=== PATIENT | female | born 1985 | race Caucasian/White ===

== ENCOUNTER 2025-01-26 08:19 | Emergency (ER) | payer OTHER, SELFPAY ==
[2025-01-26 08:38] VITALS: BP 99/56; PULSE 78; RESP 16; TEMP 36.6; O2SAT 98; BMI 22.9
[2025-01-26 08:54] LABS: MANUAL DIFF FLAG NO
[2025-01-26 08:56] LABS: Hematocrit 34.9 % (37.0-47.0); Hemoglobin 10.9 g/dl (12.0-16.0); Imm Gran Abs Auto 0.03 X10*3/uL (0.00-0.03); Imm Gran Pct Auto 0.3 % (0.0-0.4); Lymphocytes Absolute Auto 2.6 X10*3/uL (1.2-4.9); Mean Corpuscular HGB Conc 31.2 g/dl (31.0-35.0); Mean Corpuscular Hemoglobin 24.9 pg (27.0-33.0); Mean Corpuscular Volume 79.7 fL (80.0-98.0); NRBC Abs Auto 0.000 X10*3/uL (0.0-0.012); NRBC Pct Auto 0.0 /100WBC (0.0-0.2); Platelet Count 349 X10*3/uL (160-400); Red Blood Count 4.38 X10*6/uL (4.20-5.50); White Blood Count 9.0 X10*3/uL (4.8-10.8)
[2025-01-26 09:11] LABS: Anion Gap 12 (12-20); Blood Urea Nitrogen 9 mg/dL (9-16); Calcium 9.8 mg/dL (8.4-10.2); Carbon Dioxide 32 mmol/L (22-29); Chloride 101 mmol/L (96-108); Creatinine Clr Calc Pharmacy 95.1; Estimated Glomerular Filt Rate > 60; Potassium 3.0 mmol/L (3.3-5.1); Sodium 142 mmol/L (135-145)
--- NOTE | 2025-01-26 10:05 | ED.GENADULT ---
HPI - General Adult General Chief complaint: Weakness Stated complaint: fatigue, sent from urgent care Time Seen by Provider: 01/26/25 10:05 Source: patient, family and RN notes reviewed Mode of arrival: ambulatory Limitations: no limitations History of Present Illness ED Provider: Marisabel Urbina PA-C HPI narrative: This is a 39-year-old female, with a past medical history of asthma, anemia, who presents emergency department with concerns of months long fatigue that comes and goes as well as 3 near syncopal episodes yesterday. Patient states that yesterday while she was doing her son's laundry, she felt warm sensation all over her body, and felt very fatigued, with an associated headache and thought she was going to pass out. She states that this happened 2 other times later on in the day. No chest pain or shortness for breath during these episodes. She states that during these episodes she felt overwhelmed, had to sit down, became cold NSAIDs heat going down her body. She states that her symptoms completely resolved after several minutes. She denies any chest pain or shortness for breath. Reports intermittent headaches, persistent nausea since Saturday without any vomiting. Subjective fevers without measured temperature, as well as some abdominal cramping. She denies any recent travel, surgery, hospitalizations. She was seen at an urgent care yesterday, respiratory swabs were obtained, and she was advised to come to the ED for blood work. She has a primary care physician who she can follow-up with. No other complaints or concerns at this time. complaint: Fatigue Onset (ago): month(s) Relieving factors: none Exacerbating factors: none Treatments prior to arrival: none Related Data Allergies Allergy/AdvReac Type Severity Reaction Status Date / Time No Known Allergies Allergy Verified 01/26/25 08:40 Review of Systems Review of Systems: Constitutional : No Fever, No Chills ENT/Mouth : No sore throat, No Rhinorrhea Eyes: No Eye Pain, No Swelling, No Redness Cardiovascular : No Chest Pain, No SOB Respiratory : No Cough, No Sputum Gastrointestinal : No Nausea, No Vomiting, No Diarrhea, No abdominal Pain Genitourinary : No Dysuria, No Hematuria Musculoskeletal : No joint pain, No Myalgias, No Joint Swelling Skin : No Skin Lesions Neuro : No Weakness, No Numbness, No Headache All other systems reviewed and are negative Yes all other systems are reviewed and are negative Constitutional: Constitutional: Reports as per [facility] Social History Social History Smoked in Last 30 Days: Yes Use of substances other than those prescribed or required for medical reasons: Yes Substance Use Type: Marijuana Advance Directives: No Advance Directives Information Provided: No Do you have a plan to hurt others: No Plan Physical Exam ED Vital Signs: Vital Signs - 24 hr 01/26/25 08:38 01/26/25 10:09 Temperature 98 F 98.1 F Pulse Rate 78 75 Respiratory Rate 16 16 Blood Pressure 99/56 L 107/58 L Pulse Oximetry 98 98 Oxygen Delivery Method Room Air Room Air BMI result Body Mass Index 22.9 Const General: cooperative, comfortable and no acute distress Orientation/consciousness: patient oriented x3 Limitations: no limitations HENMT Head: Yes normal to inspection, Yes normocephalic and Yes atraumatic Ears: hearing grossly normal bilaterally General nose exam: Normal external nose present Face and sinus: Yes normal facial exam Mouth: Normal oral and palatal mucosa present, oropharynx normal and moist mucous membranes Throat: Yes posterior oropharynx normal Eyes General: appearance normal, both eyes and all related structures Eyelids: Yes eyelids normal Conjunctivae: conjunctivae normal Sclerae: sclerae normal Pupils: Equal, round and reactive pupils present EOM: EOMs intact bilaterally Neck Neck: Yes normal visual inspection, Yes full ROM and Yes no lymphadenopathy Lymphatic: no lymphadenopathy noted Chest Chest palpation & inspection: normal inspection of the chest Resp Effort & Inspection: normal respiratory effort and able to speak in complete sentences Auscultation: clear to auscultation bilaterally, no crackles, no rales, no rhonchi and no wheezes Cardio Rate: regular rate Rhythm: regular rhythm Heart sounds: S1 normal heart sound present and S2 normal heart sound present GI Other: abdomen is soft, nontender, nondistended Inspection: Yes normal to inspection Skin General skin exam: no rashes or lesions noted Trauma: no lacerations or abrasions Wounds: no wounds Neuro General: patient oriented x3 and moves all extremities Cranial nerves: Yes Equal, round and reactive pupils present Extrem General: Yes normal to inspection Right upper extremity: normal to inspection Left upper extremity: normal to inspection Right lower extremity: normal to inspection Left lower extremity: normal to inspection Medical Decision Making Medical Decision Making MDM Narrative: this is a 39-year-old female, with a past medical history of anemia, who presents emergency department with complaints of chronic fatigue and 3 near syncopal episodes yesterday. No chest pain or shortness for breath. Episodes associated with cold sensation, heat flushing, nausea. On arrival, patient well-appearing, speaking full sentences under no acute distress. Her vitals reveal that she is slightly hypotensive at 99/56, repeat 107/58. Differential diagnoses include orthostatic hypotension, anemia, thyroid disease, electrolyte derangement. Labs were obtained prior to my evaluation. she has a microcytic anemia with an H&H of 10.9/34.9, chemistry reveal hypokalemia at 3, awaiting liver function panel. I also added a TSH, and other labs however patient would like to be discharged. 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 I discussed with patient that she should follow-up with her primary care physician. I discussed that given her workup is not complete, patient will need to sign against medical advice. She is aware of the risks and consequences of signing against medical advice. Given strict return precautions. Hypokalemic at 3 therefore she was given p.o. potassium prior to departure. Differential Diagnosis Differential Diagnoses: The differential diagnosis associated with the presentation includes See above Lab Data [facility] Lab Attestation statement: I reviewed the patient's lab results. see [facility] 01/26/25 08:50 01/26/25 08:50 Labs: Lab Results 01/26/25 Range/Units 08:50 WBC 9.0 (4.8-10.8) X10*3/uL RBC 4.38 (4.20-5.50) X10*6/uL Hgb 10.9 L (12.0-16.0) g/dl Hct 34.9 L (37.0-47.0) % MCV 79.7 L (80.0-98.0) fL MCH 24.9 L (27.0-33.0) pg MCHC 31.2 (31.0-35.0) g/dl RDW 16.4 H (11.0-16.0) % Plt Count 349 (160-400) X10*3/uL MPV 11.1 (9.4-12.3) fL Immature Gran % (Auto) 0.3 (0.0-0.4) % Neut % (Auto) 60.5 (45-73) % Lymph % (Auto) 28.7 (20-40) % [place] % (Auto) 9.6 (2-11) % Eos % (Auto) 0.6 (0-4) % Baso % (Auto) 0.3 (0-2) % Lymph # (Auto) 2.6 (1.2-4.9) X10*3/uL [place] # (Auto) 0.9 (0.1-1.2) X10*3/uL Eos # (Auto) 0.1 (0.0-0.4) X10*3/uL Baso # (Auto) 0.0 (0.0-0.2) X10*3/uL Abs Immat Gran (auto) 0.03 (0.00-0.03) X10*3/uL Absolute Neuts (auto) 5.4 (2.0-8.3) x10*3/uL Absolute Nucleated RBC 0.000 (0.0-0.012) X10*3/uL Nucleated RBC % (auto) 0.0 (0.0-0.2) /100WBC Sodium 142 (135-145) mmol/L Potassium 3.0 L (3.3-5.1) mmol/L Chloride 101 (96-108) mmol/L Carbon Dioxide 32 H (22-29) mmol/L Anion Gap 12 (12-20) BUN 9 (9-16) mg/dL Creatinine 0.64 (0.5-1.4) mg/dL Estim Creat Clear Calc 95.1 Estimated GFR > 60 Random Glucose 91 (60-115) mg/dL Calcium 9.8 (8.4-10.2) mg/dL Blood Type A Positive Antibody Screen NEGATIVE Discharge Plan Discharge Clinical Impression: Fatigue, Hypokalemia Patient Disposition: Left Against Medical Advice Instructions: Hypokalemia (ED), Fatigue (ED) Additional Instructions: You were seen in the ER with concerns of fatigue. Your workup is not complete however you would like to leave prior to completing your full workup. Your potassium was low therefore we gave you oral potassium prior to your departure today. Given this, we are unable to rule out any life-threatening illness, therefore you were signing against medical advice. You understand that signing against medical advice, U acknowledged that any life-threatening illness including any medical conditions that can lead to severe illness disability and or . Please follow-up with your primary care physician regarding this visit. If any new or worsening symptoms occur including but not limited to severe chest pain, shortness of breath, please seek emergent care. Stand Alone Forms: Against Medical Advice Print Language: Japanese
--- OUTSIDE RECORDS SUMMARY | 2025-01-26 10:05 | XMS_ITS | Clinical Summary ---
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 No known medications Social History Tobacco Use Types Packs/Day Years Used Date Smoking Tobacco: Never Alcohol Use Standard Drinks/Week Comments Not Asked 0 (1 standard drink = 0.6 oz pur e alcohol) Comments Unknown Sex and Gender Information Value Date Recorded Sex Assigned at Not on file Legal Sex Female 9:58 AM EST Gender Identity Not on file Sexual Orientation Not on file Plan of Treatment Health Maintenance Due Date Last Done Comments Hepatitis C Screening 1987 Pap Smear 2003 DTaP/Tdap/Td (1 - Tdap) 05/23/2005 Hep B (1 of 3 - 19+ 3-dose series) 05/23/2006 COVID-19 Vaccine (2024-2 6 season) 2024 Influenza (#1) 2024 Zoster (Shingrix) (1 of 2) 05/23/2037 HPV Vaccine (No Doses Required) Completed Hep A Aged Out No longer eligi ble based on patient's age to complete this topic Hib Aged Out No longer eligi ble based on patient's age to complete this topic Meningococcal ACWY Aged Out No longer eligible based on patient's age to complete this topic Pneumococcal Aged Out No longer eligi ble based on patient's age to complete this topic
--- OUTSIDE RECORDS SUMMARY | 2025-01-26 10:05 | XMS_ITS | Clinical Summary ---
Author Organization [facility] Address [address] [place] [phone] Phone Care Team Providers Care Tile Edger Name Role Phone Tosin Peraza MD Primary Care Provider Unavailabl e Immunizations Immunization Administration Dates Next Due DTP 10/11/1998, 8,10/11/1997,08/10,07/12/1991 HPV, Quadrivalent 04/07/2007,09/26/2006,07/27/19 07 Hep B, ped/adol 04/18/2000,01/29/2000,10/27/1999 Hib (PRP-T) 06/10/1989 IPV 10/11/1998, 8,08/10/1997,07/11 Influenza, injectable, trivalent 02/10/2004 MMR 09/10/1998,07/12/1991 Meningococcal Conj (Menactra) MCV4P 04/07/2007 Td (adult) (MBL), 2 Lf tetan us toxoid, PF, adsorbed 10/27/1999 Tdap 04/07/2007 Varicella 10/27/1999 Family History Relation Name Status Comments Mother Mother: Asthma Sister 1 Sister: Diabete s mellitus, ADD/ADHD, Migraines, Asthma Sister 2 Sister: Diabete s mellitus, ADD/ADHD, Migraines, Asthma Sister 3 Sister: Diabete s mellitus, ADD/ADHD, Migraines, Asthma Sister 4 Sister: Diabete s mellitus, ADD/ADHD, Migraines, Asthma Son Son: Elevated c holesterol Social History Tobacco Use Types Packs/Day Years Used Date Smoking Tobacco: Never Assessed Comments Unknown Sex and Gender Information Value Date Recorded Sex Assigned at Not on file Legal Sex Female 4:23 PM EDT Gender Identity Not on file Sexual Orientation Not on file Plan of Treatment Health Maintenance Due Date Last Done Comments Varicella Vaccines (2 of 2 - 2-dose childhood series) 01/19/2000 10/27/1999 DTaP,Tdap,and Td Vaccines (6 - Td or Tdap) 04/07/2017 04/07/2007, 10/27/1999, 10/11/1998, Additional history exists Influenza Vaccines (#1) 2024 02/10/2004 COVID-19 Vaccine ( season) 2024 HIB Vaccines Completed 06/10/1989 MMR Vaccines Completed 09/10/1998, 07/12/1991 IPV Vaccines Completed 10/11/1998, 09/13, 08/10/1997, Additional history exists Hepatitis B Vaccines Completed 04/18/2000, 01/29/2000, 10/27/1999 HPV Vaccines Completed 04/07/2007, 09/11, 07/26/2006 Meningococcal Vaccine Aged Out 04/07/2007 No juliane lisa eligible based on patient's age to complete this topic Hepatitis A Vaccines Aged Out No long er eligible based on patient's age to complete this topic Men B Vaccine Aged Out No longer elig ible based on patient's age to complete this topic Pneumococcal Vaccine Aged Out No long er eligible based on patient's age to complete this topic Care Teams Tile Edger Relationship Specialty Start Date End Date Tosin Peraza MD PCP - General 09/21/16
--- OUTSIDE RECORDS SUMMARY | 2025-01-26 10:05 | XMS_ITS | Encounter Summary ---
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 Name Role Phone Tosin Peraza MD Primary Care Provider Unavailabl e Encounter Details Date Type Department Care Team (Late st Contact Info) Description 12/13/2016 Conversion Encounter [facility] - [address] [address] Social History Tobacco Use Types Packs/Day Years Used Date Smoking Tobacco: Never Assessed Comments Unknown Sex and Gender Information Value Date Recorded Sex Assigned at Not on file Legal Sex Female 4:23 PM EDT Gender Identity Not on file Sexual Orientation Not on file documented as of this encounter Plan of Treatment Not on file documented as of this encounter Visit Diagnoses Not on filedocumented in this encounter Care Teams Casting Repairer Relationship Specialty Start Date End Date Tosin Peraza MD PCP - General 09/21/16 documented as of this encounter
--- OUTSIDE RECORDS SUMMARY | 2025-01-26 10:05 | XMS_ITS | Patient Health Record ---
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 Ditch Worker Name Role Phone Rand Robert MD Primary Care Provider Juliet Romano Unavailable [phone] Reason For Referral No Information Medications Medication SIG (Take, Route, Frequency, Duration) Notes Start Date End Date Status Loratadine 10 MG Tablet 1 tablet Orally Once a day Active Ibuprofen 600 MG Tablet 1 tablet with fo od or milk Orally Three times a day as needed Active Cpap Mask Order auto titrating CPAP at 4-20 cm it heated humidifier, heated tubing, compliance data, fit for mask; Duration: 99 months 07/16/2016 Active Ventolin HFA 108 (90 Base) MCG/ACT Aerosol Solution 2 puffs as needed Inhalation every 4 hrs Active Fluticasone Propionate 50 MCG/ACT Suspension 1 spray in each nostril Nasally Once a day Active Omeprazole 40 MG Capsule Delayed Release Orally Once a day Active Vitamin C 500 MG Tablet Orally Active Flovent HFA 220 MCG/ACT Aerosol 2 puffs Inhalation Twice a day Active Social History Social History Additional Details Category Social Info Options Details Social History 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 Alcohol: Occasional Recreational drug use: Denies cu rrent use Exercise: None Marital status Lives with husba nd and 2 children Caffeine Cups coffee/ tea per day: 2, cup of Pepsi most days Problems Problem Type SNOMED Code ICD Code Onset Dates Problem Status W/U Status Risk Notes Problem Obstructive sleep apnea syndrome (66674385) NOHEMY (obstructiv e sleep apnea) (G47.33) Active confirmed Plan Of Treatment No Information Insurance Providers Payer Name Payer Address Payer Phone Subscriber Number Group Number Insured Name Patient Relationship to Insured Coverage Start Date Coverage End Date [place], [facility] [address] [facility] [place] [id number] Johana Roque Self - patient is the insured Medical (General) History Medical History History ICD Code Asthma Esophageal reflux Anxiety Depression Surgical History Surgery Date(Month/Year) section x 2
[2025-01-26 10:09] VITALS: BP 107/58; PULSE 75; RESP 16; TEMP 36.7; O2SAT 98
[2025-01-26] MEDS: Potassium Chloride ER 20 MEQ TAB.ER.PRT 40 MEQ PO (11:06)
[2025-01-26 11:13] VITALS: BP 107/58; PULSE 75; RESP 16; TEMP 36.7; O2SAT 98
[2025-01-26 11:31] LABS: Alanine Aminotransferase 14 U/L (0-31); Albumin Level 4.4 g/dL (3.5-5.0); Alkaline Phosphatase 61 U/L (39-117); Aspartate Amino Transferase 19 U/L (5-31); Total Protein 7.9 g/dL (6.5-8.0)
[2025-01-26 12:01] LABS: Thyroid Stimulating Hormone 1.12 uIU/mL (0.32-4.0)
== END 2025-01-26 11:13 | disposition left against medical advice (07) ==
PROVIDERS: Physician Assistant Medical; Emergency Provider Emergency Medicine Emergency Medical Services
DX: E87.6 Hypokalemia (principal); I95.9 Hypotension, unspecified; R53.83 Other fatigue; Z53.29 Procedure and treatment not carried out because of patient's decision for other reasons
CPT/HCPCS: 36415; 80048; 80076; 84443; 84702; 85025; 86850; 86900; 86901; 99283; 99284

== ENCOUNTER 2025-01-30 12:01 | Emergency (ER) | payer OTHER, SELFPAY ==
--- OUTSIDE RECORDS SUMMARY | 2025-01-28 12:45 | XMS_ITS | Encounter Summary ---
Author Organization [facility] Address [address] [place] [address] Care Team Providers Care Knitter Machine Name Role Phone Rand Robert MD Primary Care Provider [phone] Reason for Referral * Diagnostic Lab (Routine) - Authorized Specialty Diagnoses / Procedures Referred By Rosie pickering Referred To Contact Diagnoses Diarrhea, unspecified type Procedures Calprotectin, Stool Rand Robert MD [address] [place] [address] Phone: tel: fax: Referral ID Status Reason Start Date Expiration Date V isits Requested Visits Authorized [id number] Authorized 01/28/2025 07/30/2026 1 1 Reason for Visit * Reason Comments Follow-up Dizziness Fatigue Abnormal Potassium Encounter Details Date Type Department Care Team (Late st Contact Info) Description 01/28/2025 12:45 PM EST Office Visit [facility] [address] [place] [id number] Rand oRbert MD [address] [place] [phone] Other fatigue (Primary Dx); Stress; Arthralgia, unspecified joint; Dizziness; B12 deficiency; S/P laparoscopic sleeve gastrectomy; Diarrhea, unspecified type; Nausea; Gastritis without bleeding, unspecified chronicity, unspecified gastritis type; Generalized anxiety disorder; Hypokalemia; Weight loss Social History Tobacco Use Types Packs/Day Years Used Date Smoking Tobacco: Former Cigarettes 4 2 018 - 02/04/2021 Smokeless Tobacco: Never Comments:currently vaping Alcohol Use Standard Drinks/Week Comments Yes 0 (1 standard drink = 0.6 oz pur e alcohol) Occasionally [facility] Utilities Answer Date Recorded In the past 12 months has e electric, gas, oil, or water company threatened to shut off services in your home? No 10/15/2023 Hunger Vital Sign Answer Date Recorded Within the past 12 months, y ou worried that your food would run out before you got the money to buy more. Sometimes true Within the past 12 months, t he food you bought just didn't last and you didn't have money to get more. Never true 04/2023 Transportation Answer Date Recorded In the past 12 months, has l ack of reliable transportation kept you from medical appointments, meetings, work or from getting things needed for daily living? No 10/15/2023 Housing Answer Date Recorded Housing Risk Low 1 10/15/2023 Housing Risk Medium Not on file 10/15/2023 Housing Risk High 1 10/15/2023 What is your living situation today? 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 Not on file Not on file Not on file documented as of this encounter Last Filed Vital Signs Vital Sign Reading Time Taken Comments Blood Pressure 104/70 01/28/2025 12:53 PM EST Pulse 82 01/28/2025 12:53 PM EST Temperature 36.8 C (98.3 F) 01/28/2025 12:51 PM EST Respiratory Rate - - Oxygen Saturation 100% 01/28/2025 12:51 PM EST Inhaled Oxygen Concentration - - Weight 54.4 kg (120 lb) 01/28/2025 12:51 PM EST Height - - Body Mass Index 21.94 10/04/2022 12:59 PM EDT documented in this encounter Progress Notes * Rand Robert MD - 01/28/2025 12:45 PM EST Tatiana Roque 1985 Progress Note Subjective The provider would like to use a new technology product that will automatically document your encounter based on a recording of your conversation today. This will allow them to spend more time focused on you. Is it okay with you if we record your conversation? Patient consents to be recorded by [employer] system. HPI: Tatiana Roque is a 39 y.o. patient comes to the clinic today to follow- up from recent ED visit She went to emergency room with presyncope and low blood pressure. I do not have ER note Of note she has not been to the clinic since 2023. Her last physical was September 2022. Does not seem to be taking any of her meds which include SSRI and mirtazapine for management of depression anxiety, B12 injections and iron supplements- deficiencies in setting of menorrhagia and history of gastric sleeve surgery History of Present Illness The patient is a 39-year-old female who presents to the clinic today for evaluation of multiple complaints. She is accompanied by her daughter. 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 She reports that fatigue is going on for more than a year. She reports joint pain without redness or swelling, which has been present since her fatigue began that is a year ago. Regarding her nausea which is going on for about 2 weeks associated with weight loss of 10 pounds, there is no associated heartburn or abdominal pain. She believes the nausea is related with her stress. Her p.o. intake has decreased so she has been taking protein shakes and vitamins to supplement her diet. She reports no persistent fevers, chills, cough, chest pressure or pain, palpitations, vomiting, orabdominal pain. She has been experiencing diarrhea for the past week, occurring three times a day or immediately after eating. She reports no blood or mucus in her stool. On Saturday, she experienced an episode of shaking, sweating, feeling hot, and blacking out while standing in her closet at home. This episode was preceded by several days of nausea and loss of appetite, during which she lost 10 pounds over the the past 2 weeks. 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 Additionally, her aunt recently. She reports feeling episodes of cold when dizzy, uncontrollable crying, and headaches. After send the episode as mentioned above, on Saturday, she experienced another episode of dizziness while doing laundry, which led her to seek medical attention at an urgent care center. She was referred to the emergency room where she was found to have low potassium levels unfortunately we do not know how low it was. There are no records available. Her blood pressure was initially low but normalized after three checks. She has not been sleeping well due to her work schedule and insomnia. She has not taken any antibiotics recently but has used DayQuil for URI-like symptoms last week which have since resolved. She reports no persistent headaches. She experiences numbness when sleeping on her side that she points tothe lateral thigh left side. She stretches her body every morning. She reports no heartburn or acidreflux. She has been taking ibuprofen as needed for pain and menstrual discomfort. She has not been taking her prescribed medications for depression and anxiety due to their sedativeeffects, which interfere with her work schedule. Review of Systems Constitutional: Negative for chills and fever. HENT: Negative for hearing loss and tinnitus. Respiratory: Negative for cough, shortness of breath and wheezing. Cardiovascular: Negative for chest pain, chest pressure, chest tightness, leg swelling and palpitations. Gastrointestinal: Negative for abdominal pain, anal bleeding, blood in stool, constipation, heartburn and vomiting. Genitourinary: Negative for dysuria and frequency. Skin: Negative for change in mole and rash. Neurological: Negative for headaches. PAST MEDICAL HISTORY 1. Depression and anxiety-longstanding history. Not compliant with regular visits and medications. Intolerant to multiple medications Sertraline cause drowsiness Lexapro caused stomach upset 2. Longstanding history of menorrhagia and abnormal uterine bleeding She sees CORPORATE DEVELOPMENT OFFICER 3. Iron deficiency anemia due to menorrhagia and abnormal uterine bleeding 4. Obstructive sleep apnea She has lost quite a bit of weight since her diagnosis. This is likely resolved. But there is no documentation of that 5. Chronic lower back pain 6. Mild intermittent asthma 7. History of gastric sleeve surgery September 2018 8.GERD CURRENT MEDICATIONS: Currently not taking any meds. Per her list the meds that she was on in 04/2023 Ibuprofen 800 mg 3 times daily as needed for abdominal pain Pantoprazole 40 mg a day Famotidine 20 mg at bedtime Duloxetine 60 mg a day Hydroxizine 25 mg po 3 times a day prn Remeron 15 mg at bedtime Valtrex 2 tablets 12 hours apart as needed for cold sores Albuterol inhaler as needed Multivitamin B12 1000 mcg monthly since November 2022. Levels remained at lower end of normal at 247 with sublingual preparation Received intravenous iron October 2022 Medications prescribed today: Pantoprazole 20 mg once a day Cymbalta 30 mg a day No Known Allergies Social History Tobacco Use Smoking status: Former Current packs/day: 0.00 Types: Cigarettes Start date: 2017 Quit date: 02/04/2021 Years since quittin.9 Smokeless tobacco: Never Tobacco comments: currently vaping Substance Use Topics Alcohol use: Yes Comment: Occasionally Objective BP 104/70 (BP Location: Right arm, Patient Position: Standing) Pulse 82 Temp 36.8 ??C (98.3 ??F) (Oral) Wt 54.4 kg (120 lb) SpO2 100% BMI 21.94 kg/m?? Her weight fluctuates between 120 and 130 pounds. Last seen in the clinic April 2023 she was trending down from 130 and was 127 pounds. Now she is down to 120 pounds but she has been at this weight before No sensitive exam, procedure or treatment was performed. No instructional technology coordinator present. Physical Exam Constitutional: General: She is not in acute distress. Appearance: Normal appearance. Cardiovascular: Rate and Rhythm: Normal rate and regular rhythm. Pulses: Normal pulses. Heart sounds: Normal heart sounds. No murmur heard. No friction rub. No gallop. Pulmonary: Effort: Pulmonary effort is normal. Breath sounds: Normal breath sounds. No wheezing, rhonchi or rales. Abdominal: General: Bowel sounds are normal. There is no distension. Palpations: Abdomen is soft. There is no mass. Tenderness: There is no abdominal tenderness. Musculoskeletal: Right lower leg: No edema. Left lower leg: No edema. Comments: She was diffusely tender on palpation of her entire back, trapezius area, periscapular and infrascapular area Paralumbar area No redness or swelling of any joints. No signs of synovitis but she reported discomfort upon palpation of her distal forearm and wrist area. Full range of motion of her wrists. Full range of motion of her hip and knee and ankle joint. Neurological: Mental Status: She is alert. Assessment & Plan Other fatigue Going on for almost a year. Accompanied by arthralgias Diffuse myofascial back pain as well. This is in setting of stress She also has history of gastric sleeve surgery and has history of nutritional deficiencies and currently not taking any supplements Differential is broad Will start with a basic blood work She is to return to [facility] for cortisol level at 8 AM rest of the labs will be drawn today Orders: Comprehensive Metabolic Panel; Future CBC Auto Differential; Future Hemoglobin A1c; Future Lyme Antibody Screen w/Reflex to Blot; Future Cortisol AM; Future ACTH, Plasma; Future DHEA-Sulfate; Future Stress Multiple stressors mainly at home some at work These could be contributing to some of her symptoms and she agrees with that Stress has caused nausea and loss of appetite for her in the past. There are some symptoms suggestive of depression and perhaps panic attacks Agreeable to resume Cymbalta Arthralgia, unspecified joint No synovitis on exam History is not consistent with inflammatory arthritis Duloxetine being prescribed to manage stress, mood disorder and hopefully should help arthralgias and chronic pain Orders: Lyme Antibody Screen w/Reflex to Blot; Future Sedimentation Rate; Future C-Reactive Protein; Future Potassium; Future ODETTE Screen, IFA, w/Reflex to Titer & Pattern; Future Rheumatoid Factor; Future Cyclic Citrullinated Peptide (CCP) Antibody, IgG; Future DNA Antibody, Double-Stranded; Future Dizziness Intermittent episodes over the last week They last for few seconds and the resolve on resting Reports feels very warm, starts getting tremulous and feels as if she is going to pass out but symptoms passed within few seconds. She is 39 years old still having the regular.'s unlikely to be hot flashes Vasovagal? Workup is being started as mentioned above B12 deficiency History of B12 deficiency not responding to sublingual tablets she used to be on injections and nottaking them in a while. Recheck the numbers Orders: Vitamin B12; Future S/P laparoscopic sleeve gastrectomy 2019 Has malabsorption since then Will check iron levels, B12, CBC, CMP Orders: Iron, TIBC and Ferritin Panel; Future Diarrhea, unspecified type Going on for about a week No recent antibiotic use Stool studies ordered and advised her to give the sample if diarrhea is persisting for another week It is mainly happening right after eating without any nighttime symptoms I wonder if it is due to irritable bowel syndrome Orders: Comprehensive Metabolic Panel; Future CBC Auto Differential; Future TSH Reflex Free T4; Future Ova and Parasite Examination; Future Stool Culture (Salmonella/Shigella/Campylobacter/Shiga Toxin w/reflex E coli O157) Fecal Leukocytes; Future Celiac Diagnostic Panel w/Gliadin, All Ages (Includes: IgA, tTG IgA/IgG and Giadin IgA/IgG); Future Calprotectin, Stool; Future C Difficile Toxin/GDH w/ Reflex to PCR; Future Nausea Intense nausea for the last 2 weeks and reports that she has lost weight during this time as well. Prone to gastritis due to history of sleeve gastrectomy and intermittent NSAID use Will do H. pylori testing Trial of PPI Close follow-up in 4 weeks Orders: H pylori Breath Test; Future pantoprazole DR (PROTONIX) 20 mg tablet; Take 1 tablet (20 mg total) by mouth once a day. Cortisol AM; Future ACTH, Plasma; Future DHEA-Sulfate; Future Gastritis without bleeding, unspecified chronicity, unspecified gastritis type Symptoms could be from this due to history of gastric sleeve and ongoing nausea Check for H. pylori Trial of PPI with close follow-up (Of note in January 2021 she had reported early satiety and decreased appetite and PPI did not help. EGD was done in March 2021 which showed grade a esophagitis and small hiatal hernia) Orders: pantoprazole DR (PROTONIX) 20 mg tablet; Take 1 tablet (20 mg total) by mouth once a day. Generalized anxiety disorder Cymbalta is being started I wonder if the episodes described above with dizziness, feeling flushed and tremulous and followedby crying and dizziness are manifestation of panic attacks Hypokalemia Please see below an addendum Orders: Cortisol AM; Future ACTH, Plasma; Future DHEA-Sulfate; Future Weight loss Please see below and addendum Orders: XR Chest 2 vw. Standard; Future QuantiFERON-TB Gold Plus, 1 Tube; Future Advised patient that she has multiple symptoms and I do not have a unifying diagnosis at this time.I am going to start with a workup but she needs to see me every 4 to 6 weeks till we can figure outthe exact cause and/or make her start feeling better. She needs to be compliant with the follow-ups and recommendations on her part and she is agreeable.More than 60 minutes were spent in taking care of the patient Addendum: Labs came back Potassium 3.1 Rest of the electrolytes normal and GFR is normal Liver function test normal Ferritin normal 46.6 TIBC 361 iron saturation 9% Normocytic anemia with hemoglobin of 10 Normal B12 Normal TSH C-reactive protein 47.9 and sed rate 69 TSH is normal I spoke to patient over the phone She once again mentions that the diarrhea is loose watery stools not more than 2-3 times a day. No nighttime symptoms 2-3 loose stools do not explain potassium of 3.1 So now I have patient with fatigue, nausea, diarrhea, possibly unintentional weight loss, arthralgias with low potassium of 3.1 and elevated inflammatory markers. Recommendations: Start potassium supplements 40 mEq today, repeat in 4 hours Another dose tomorrow morning and Saturday morning Then decrease to 20 mg daily until further instructions She is to come back in 48 hours for potassium check Also will check cortisol a.m., ACTH, DHEA-S-as concerned about Shelby's Given prolonged fatigue and weight loss and arthralgias and elevated free inflammatory markers and anemia-could represent extrapulmonary TB-gold quant ordered Given her arthralgias I will check ODETTE, [id number] DNA, rheumatoid factor anti-CCP. She will turn in samples for infectious workup of diarrhea. Once negative we will proceed with diagnostic colonoscopy and could consider CT abdomen/pelvis documented in this encounter Miscellaneous Notes * Assessment & Plan Note - Rand Robert MD - 01/28/2025 5:03 PM ESTAssociated Problem(s): B12 deficiency History of B12 deficiency not responding to sublingual tablets she used to be on injections and nottaking them in a while. Recheck the numbers Orders: Vitamin B12; Future * Assessment & Plan Note - Rand Robert MD - 01/28/2025 5:03 PM ESTAssociated Problem(s): S/P laparoscopic sleeve gastrectomy 2019 Has malabsorption since then Will check iron levels, B12, CBC, CMP Orders: Iron, TIBC and Ferritin Panel; Future * Assessment & Plan Note - Rand Robert MD - 01/28/2025 5:03 PM ESTAssociated Problem(s): Generalized anxiety disorder Cymbalta is being started I wonder if the episodes described above with dizziness, feeling flushed and tremulous and followedby crying and dizziness are manifestation of panic attacks documented in this encounter Plan of Treatment Upcoming Encounters Date Type Department Care Team (Late st Contact Info) Description 02/25/2025 2:45 PM EST Office Visit [facility] [address] [place] [phone] Rand Robert MD [address] [place] [phone] 03/31/2025 9:45 AM EST Office Visit [facility] [address] [place] [phone] Rand Robert MD [address] [place] [phone] Pending Results Name Type Priority Associated Diagnoses Date /Time Celiac Diagnostic Panel w/Gliadin, All Ages (Includes: IgA, tTG IgA/IgG and Giadin IgA/IgG) Lab Routine Diarrhea, unspecified type 01/28/2025 2:40 PM EST ACTH, Plasma Lab Routine Other fatigue Nausea Hypokalemia 01/30/2025 8:55 AM EST DHEA-Sulfate Lab Routine Other fatigue Nausea Hypokalemia 01/30/2025 8:55 AM EST ODETTE Screen, IFA, w/Reflex to Titer & Pattern Lab Routine Arthralgia, unspecified joint 01/30/2025 8:55 AM EST Rheumatoid Factor Lab Routine Arthralgia, unspecified joint 01/30/2025 8:55 AM EST Cyclic Citrullinated Peptide (CCP) Antibody, IgG Lab Routine Arthralgia, unspecified joint 01/30/2025 8:55 AM EST DNA Antibody, Double-Stranded Lab Routine Arthralgia, unspecified joint 01/30/2025 8:55 AM EST QuantiFERON-TB Gold Plus, 1 Tube Lab Routine Weight loss 01/30/2025 8:55 AM EST Scheduled Orders Name Type Priority Associated Diagnoses Orde r Schedule Ova and Parasite Examination Microbiology Routine Diarrhea, unspecified type Expected: 01/28/2025, Expires: 07/29/2025 Stool Culture (Salmonella/Shigella/Cam pylobacter/Shiga Toxin w/reflex E coli O157) Microbiology Routine Diarrhea, unspecified type Ordered: 01/28/2025 Fecal Leukocytes Microbiology Routine Diarrhea, unspecified type Expected: 01/28/2025, Expires: 07/29/2025 Celiac Diagnostic Panel w/Gliadin, All Ages (Includes: IgA, tTG IgA/IgG and Giadin IgA/IgG) Lab Routine Diarrhea, unspecified type Expected: 01/28/2025, Expires: 01/28/2026 Calprotectin, Stool Lab Routine Diarrhea, unspecified type Expected: 01/28/2025, Expires: 01/28/2026 C Difficile Toxin/GDH w/ Reflex to PCR Lab Routine Diarrhea, unspecified type Expected: 01/28/2025, Expires: 01/28/2026 Campylobacter species Antigen Microbiology Routine Diarrhea, unspecified type Ordered: 01/28/2025 Salmonella and Shigella Culture Microbiology Routine Diarrhea, unspecified type Ordered: 01/28/2025 Shiga Toxins, EIA w/Reflex to E coli O157 Culture Microbiology Routine Diarrhea, unspecified type Ordered: 01/28/2025 XR Chest 2 vw. Standard Imaging Routine Weight loss Expected: 01/28/2025, Expires: 03/31/2026 ACTH, Plasma Lab Routine Other fatigue Nausea Hypokalemia Expected: 01/28/2025, Expires: 01/28/2026 DHEA-Sulfate Lab Routine Other fatigue Nausea Hypokalemia Expected: 01/28/2025, Expires: 01/28/2026 ODETTE Screen, IFA, w/Reflex to Titer & Pattern Lab Routine Arthralgia, unspecified joint Expected: 01/28/2025, Expires: 07/27/2025 Rheumatoid Factor Lab Routine Arthralgia, unspecified joint Expected: 01/28/2025, Expires: 07/27/2025 Cyclic Citrullinated Peptide (CCP) Antibody, IgG Lab Routine Arthralgia, unspecified joint Expected: 01/28/2025, Expires: 07/27/2025 DNA Antibody, Double-Stranded Lab Routine Arthralgia, unspecified joint Expected: 01/28/2025, Expires: 01/28/2026 QuantiFERON-TB Gold Plus, 1 Tube Lab Routine Weight loss Expected: 01/28/2025, Expires: 01/28/2026 documented as of this encounter Results * Due to [place] state law, this organization might not be sharing negative HIV tests. * (ABNORMAL) Potassium (01/30/2025 8:55 AM EST) K 2.9(LL) 3.5 - 5.3 mmol/L 01/30/2025 10:12 AM EST [facility] Blood Structure of peripheral vein / Unknown Venipuncture / Unknown 01/30/2025 8:55 AM EST 01/30/2025 9:16 AM EST us Rand Robert MD LAB BLOOD ORDERABLES Final Resul t [facility] [address] [place] [phone], * Cortisol AM (01/30/2025 8:55 AM EST) Cortisol-AM 12.6 6.7 - 22.6 ug/dL 01/30/2025 9:57 AM EST [facility] Blood Structure of peripheral vein / Unknown Venipuncture / Unknown 01/30/2025 8:55 AM EST 01/30/2025 9:16 AM EST Rand Robert MD LAB BLOOD ORDERABLES Final Resul t [facility] [address] [place] [address], [place] * (ABNORMAL) H pylori Breath Test (01/28/2025 2:48 PM EST) Helicobacter Pylori, Urea Breath Test DETECTED (A) NOT DETECTED 01/29/2025 3:17 PM EST [facility] Comment: Antimicrobials, proton pump inhibitors, and bismuth preparations are known to suppress H. pylori, and ingestion of these prior to H. pylori diagnostic testing may lead to false negative results. If clinically indicated, the test may be repeated on a new specimen obtained two weeks after discontinuing treatment. However, a positive result is still clinically valid. Breath Oral cavity structure / Unknown Non-Blood Collection / Unknown 01/28/2025 2:48 PM EST 01/28/2025 3:12 PM EST Narrative [facility] - 01/29/2025 3:17 PM EST [facility] Received Date: Rand Robert MD LAB BLOOD ORDERABLES Final Resul t Performing Organization Address City/[facility] Co de Phone Number [facility] [address] [facility] [address] [facility] [place] [address], [facility] [address] [facility] [address], [place] [address], [place] [phone] * (ABNORMAL) C-Reactive Protein (01/28/2025 2:40 PM EST) C Reactive Protein 47.9(H) <=9.9 mg/L 01/28/2025 4:00 PM EST [facility] Blood Structure of peripheral vein / Unknown Venipuncture / Unknown 01/28/2025 2:40 PM EST 01/28/2025 3:15 PM EST Rand Robert MD LAB BLOOD ORDERABLES Final Resul t Performing Organization Address City/[facility]/ZIP Co de Phone Number [facility] [address] [place] [address] * (ABNORMAL) Sedimentation Rate (01/28/2025 2:40 PM EST) Sed Rate 69(H) <20 mm/Hr mm/Hr 01/28/2025 3:27 PM EST [facility] Blood Structure of peripheral vein / Unknown Venipuncture / Unknown 01/28/2025 2:40 PM EST 01/28/2025 3:13 PM EST Rand Robert MD LAB BLOOD ORDERABLES Final Resul t Performing Organization Address [facility] de Phone Number [facility] [address] [place] [address] * Lyme Antibody Screen w/Reflex to Blot (01/28/2025 2:40 PM EST) Lyme Ab Screen <0.90 index 01/29/2025 1:49 AM EST [facility] Comment: Index Interpretation ----- < 0.90 Negative 0.90-1.09 Equivocal > 1.09 Positive As recommended by the Food and Drug Administration (FDA), all samples with positive or equivocal results in a Borrelia burgdorferi antibody screen will be tested using a blot method. Positive or equivocal screening test results should not be interpreted as truly positive until verified as such using a supplemental assay (e.g., B. burgdorferi blot). The screening test and/or blot for B. burgdorferi antibodies may be falsely negative in early stages of Lyme disease, including the period when erythema migrans is apparent. Blood Structure of peripheral vein / Unknown Venipuncture / Unknown 01/28/2025 2:40 PM EST 01/28/2025 3:12 PM EST Eddie [facility] 01/29/2025 1:49 AM EST [facility] Received Date:[id number] us Rand Robert MD LAB BLOOD ORDERABLES Final Resul t Performing Organization Address City/[facility]/ZIP Co de Phone Number [facility] [address] [facility] 3rd Floor, [place] [address], [place] [phone] [facility] [facility] [address], [place] [address], * Hemoglobin A1c (01/28/2025 2:40 PM EST) Hemoglobin A1C 5.4 <5.7 % 01/28/2025 8:53 PM EST [facility] Comment: For the purpose of screening for the presence of diabetes: <5.7% Consistent with the absence of diabetes 5.7-6.4% Consistent with increased risk for diabetes (prediabetes) > or =6.5% Consistent with diabetes This assay result is consistent with a decreased risk of diabetes. Currently, no consensus exists regarding use of hemoglobin A1c for diagnosis of diabetes in children. According to [place] Diabetes Association (ADA) guidelines, hemoglobin A1c <7.0% represents optimal control in non- diabetic patients. Different metrics may apply to specific patient populations. Standards of Medical Care in Diabetes(ADA). eAG (MG/DL) 108 mg/dL 01/28/2025 8:53 PM EST [facility] eAG (MMOL/L) 6.0 mmol/L 01/28/2025 8:53 PM EST [facility] Blood Structure of peripheral vein / Unknown Venipuncture / Unknown 01/28/2025 2:40 PM EST 01/28/2025 3:13 PM EST [facility] - 01/28/2025 8:53 PM EST [facility] Received Date:[id number] us Rand Robert MD LAB BLOOD ORDERABLES Final Resul t LUCRECIA GONSALESKRISTEN [address] [facility] 3rd [facility], [place] [address], [place] [phone] [facility] [facility] [address], [place] [address], [place] [phone] * TSH Reflex Free T4 (01/28/2025 2:40 PM EST) TSH 0.946 0.280 - 3.890 uIU/mL 01/28/2025 4:00 PM EST [facility] Comment: Females: 1st trimester 0.150-4.000 IU/mL 2nd trimester 0.310-4.170 IU/mL 3rd trimester 0.380-4.150 IU/mL Blood Structure of peripheral vein / Unknown Venipuncture / Unknown 01/28/2025 2:40 PM EST 01/28/2025 3:15 PM EST Rand Robert MD LAB BLOOD ORDERABLES Final Resul t Performing Organization Address City/[facility]/ZIP Co de Phone Number [facility] [address] [place] [phone], [place] * Vitamin B12 (01/28/2025 2:40 PM EST) Pathologist [facility] Vitamin B12 433 232 - 1,245 pg/mL 01/28/2025 4:00 PM EST [facility] Blood Structure of peripheral vein / Unknown Venipuncture / Unknown 01/28/2025 2:40 PM EST 01/28/2025 3:15 PM EST Rand Robert MD LAB BLOOD ORDERABLES Final Resul t [facility] [address] [place] [address], * (ABNORMAL) CBC Auto Differential (01/28/2025 2:40 PM EST) WBC 6.5 3.8 - 10.8 10*3/uL 01/28/2025 3:22 PM EST [facility] RBC 4.03 3.80 - 5.10 10*6/uL 01/28/2025 3:22 PM EST [facility] Hemoglobin 10.0(L) 11.7 - 15.5 g/dL 01/28/2025 3:22 PM EST [facility] Hematocrit 32.6(L) 35.0 - 45.0 % 01/28/2025 3:22 PM EST [facility] MCV 80.9 80.0 - 100.0 fL 01/28/2025 3:22 PM EST [facility] MCH 24.8(L) 27.0 - 33.0 pg 01/28/2025 3:22 PM EST [facility] MCHC 30.7(L) 32.0 - 36.0 g/dL 01/28/2025 3:22 PM EST [facility] RDW 16.2(H) 11.0 - 15.0 % 01/28/2025 3:22 PM EST [facility] Platelets 443(H) 140 - 400 10*3/uL 01/28/2025 3:22 PM EST [facility] MPV 11.2 7.5 - 12.5 fL 01/28/2025 3:22 PM EST [facility] Neutrophil % 48.6 % 01/28/2025 3:22 PM EST [facility] Immature Grans % 0.2 0.0 - 0.9 % 01/28/2025 3:22 PM EST [facility] Lymphocyte % 42.2 % 01/28/2025 3:22 PM EST [facility] Monocyte % 8.0 % 01/28/2025 3:22 PM EST [facility] Eosinophil % 0.5 % 01/28/2025 3:22 PM EST [facility] Basophil % 0.5 % 01/28/2025 3:22 PM EST [facility] Neutrophil # 3.18 1.50 - 7.80 10*3/uL 01/28/2025 3:22 PM EST [facility] Immature Grans # <0.03 <=0.03 10*3/uL 01/28/2025 3:22 PM EST [facility] Lymphocyte # 2.80 0.85 - 3.90 10*3/uL 01/28/2025 3:22 PM EST [facility] Monocyte # 0.50 0.20 - 0.95 10*3/uL 01/28/2025 3:22 PM EST [facility] Eosinophil # <0.03 0.02 - 0.50 10*3/uL 01/28/2025 3:22 PM EST [facility] Basophil # <0.03 0.00 - 0.20 10*3/uL 01/28/2025 3:22 PM EST [facility] nRBC % 0.0 /100 WBCs 01/28/2025 3:22 PM EST [facility] nRBC # <0.01 <0.01 10*3/uL 01/28/2025 3:22 PM EST [facility] Blood Structure of peripheral vein / Unknown Venipuncture / Unknown 01/28/2025 2:40 PM EST 01/28/2025 3:13 PM EST us Rand Robert MD LAB BLOOD ORDERABLES Final Resul t [facility] [facility] [address] [place] [address], * (ABNORMAL) Comprehensive Metabolic Panel (01/28/2025 2:40 PM EST) NA 143 135 - 145 mmol/L 01/28/2025 4:00 PM EST [facility] K 3.1(L) 3.5 - 5.3 mmol/L 01/28/2025 4:00 PM EST [facility] Cl 101 97 - 110 mmol/L 01/28/2025 4:00 PM EST [facility] CO2 29 22 - 32 mmol/L 01/28/2025 4:00 PM EST [facility] Anion Gap 13 5 - 15 01/28/2025 4:00 PM EST [facility] Glucose 80 65 - 99 mg/dL 01/28/2025 4:00 PM EST [facility] Creatinine 0.63 0.50 - 1.20 mg/dL 01/28/2025 4:00 PM EST [facility] Calcium 9.6 8.6 - 10.5 mg/dL 01/28/2025 4:00 PM [facility] Total Protein 8.1(H) 6.0 - 8.0 g/dL 01/28/2025 4:00 PM EST [facility] Albumin 4.4 3.5 - 5.2 g/dL 01/28/2025 4:00 PM EST [facility] Bilirubin, Total 0.3 0.2 - 1.2 mg/dL 01/28/2025 4:00 PM EST [facility] Alkaline Phosphatase 60 35 - 129 U/L 01/28/2025 4:00 PM EST [facility] AST 25 10 - 40 U/L 01/28/2025 4:00 PM EST [facility] ALT 26 10 - 40 U/L 01/28/2025 4:00 PM EST [facility] BUN 9 7 - 23 mg/dL 01/28/2025 4:00 PM EST [facility] eGFR >90 >=60 mL/min/1. 73m2 01/28/2025 4:00 PM EST [facility] Comment:The estimated glomer ular filtration rate (eGFR) is calculated using a new formula developed by the NKF-ASN task force to eliminate race-based correction factors. The new formula uses serum/plasma creatinine, age, and gender to determine eGFR. A value below 60mls/min might indicate kidney disease and will be flagged. For additional information, see Marie et al, Am J Kidney Dis. 2021;79(2):268- 288, A Unifying Approach for GFR estimation: Recommendations of the NKF-ASN Task Force on Reassessing the Inclusion of Race in Diagnosing Kidney Disease . Globulin, Total 3.7 2.1 - 4.2 g/dL 01/28/2025 4:00 PM EST [facility] A/G Ratio 1.2(L) 1.5 - 3.0 01/28/2025 4:00 PM EST [facility] Blood Structure of peripheral vein / Unknown Venipuncture / Unknown 01/28/2025 2:40 PM EST 01/28/2025 3:15 PM EST us Rand Robert MD LAB BLOOD ORDERABLES Final Resul t [facility] [address] [place] [address], documented in this encounter Visit Diagnoses Diagnosis Other fatigue- Primary Stress Other psychological or physical stress, not elsewhere classified Arthralgia, unspecified joint Dizziness Dizziness and giddiness B12 deficiency S/P laparoscopic sleeve gastrectomy Diarrhea, unspecified type Nausea Nausea alone Gastritis without bleeding, unspecified chronicity, unspecified gastritis type Generalized anxiety disorder Hypokalemia Hypopotassemia Weight loss Loss of weight documented in this encounter Care Teams Knitter Machine Relationship Specialty Start Date End Date Rand Robert MD [address] [place] [address] PCP - General Internal Medicine 11/17/16 documented as of this encounter
[2025-01-30 12:47] VITALS: BP 110/53; PULSE 68; RESP 16; TEMP 36.3; O2SAT 98; BMI 22.0
--- NOTE | 2025-01-30 12:53 | ED_ITS ---
HPI - General Adult General Chief complaint: Recheck/Abnormal Lab/Rx Stated complaint: bloodwork done x2 potassium was high but then low Related Data Allergies Allergy/AdvReac Type Severity Reaction Status Date / Time No Known Allergies Allergy Verified 01/30/25 12:57 [facility] Social History Social History Substance Use Type: Marijuana Advance Directives: No Advance Directives Information Provided: No Do you have a plan to hurt others: No Plan Physical Exam ED Vital Signs: Vital Signs - 24 hr 01/30/25 12:47 Temperature 97.4 F Pulse Rate 68 Respiratory Rate 16 Blood Pressure 110/53 L Pulse Oximetry 98 Oxygen Delivery Method Room Air BMI result Body Mass Index 22.0 Course Course Course Narrative: This is a rapid medical exam. Deferred additional HPI, ROS, PE to primary provider. 39 yo female with history of anemia, gastric sleeve at [facility] 2018, asthma, anxiety, depression here with complaints dizziness, abnormal labs. Seen here 01/26 on PO potassium which she started taking today. Had outpatient labs at [facility] which showed anemia, hypokalemia. PCP called and referred in to the ER. VSS Ordered labs, UA Discharge Plan Discharge Clinical Impression: Dizziness Patient Disposition: Left W/O Completing Treatment Discharge Date/Time: 01/30/25 16:54
--- NOTE | 2025-01-30 13:11 | MHC.EDTECH ---
cnrx1 @3199 for labs
--- OUTSIDE RECORDS SUMMARY | 2025-01-30 16:50 | XMS_ITS | Encounter Summary ---
Author Organization [facility] Address [address] [place] [address] Care Team Providers Care Fork Operator Name Role Phone Rand Robert MD Primary Care Provider [phone] Encounter Details Date Type Department Care Team (Late Contact Info) Description 05/30/2022 Orders Only [facility] Interventional Radiology [address] [place], [place] [phone] Tony Pal MD [address] [place], [place] [phone] Social History Tobacco Use Types Packs/Day Years Used Date Smoking Tobacco: Former Cigarettes 4 2 018 - 02/04/2021 Smokeless Tobacco: Never Comments:currently vaping Alcohol Use Standard Drinks/Week Comments Yes 0 (1 standard drink = 0.6 oz pur e alcohol) Occasionally Comments No Sex and Gender Information Value Date Recorded Sex Assigned at Female 10/03/2018 11:47 AM EDT Legal Sex Female 8:02 AM EDT Gender Identity Female 08/27/2017 10:41 AM EDT Sexual Orientation Straight 10/03/2018 11 :47 AM EDT 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 Not on file Not on file documented as of this encounter Plan of Treatment Upcoming Encounters Date Type Department Care Team (Late st Contact Info) Description 02/25/2025 2:45 PM EST Office Visit [facility] [address], [place] [phone] Rand Robert MD [address] [place] [address] 03/31/2025 9:45 AM EST Office Visit [facility] [address] [place] [address] Rand Robert MD [address] [place] [address] documented as of this encounter Visit Diagnoses Not on filedocumented in this encounter Additional Health Concerns Infection Onset Date Last Indicated Resolved Time COVID-19 - Suspected infection 01/10/2021 01/10/2021 11/01/2022 10:36 PM EDT R/O Respiratory Virus Infection 03/20/2023 03/20/2023 2:49 PM EST R/O Influenza 03/20/2023 03/20/2023 03/20/2023 2:4 9 PM EST COVID-19 - Suspected infection 03/20/2023 03/20/2023 03/20/2023 2:49 PM EST documented as of this encounter Care Teams Fork Operator Relationship Specialty Start Date End Date Rand Robert MD [address] [place] [address] PCP - General Internal Medicine 11/17/16 documented as of this encounter
--- OUTSIDE RECORDS SUMMARY | 2025-01-30 16:50 | XMS_ITS | Clinical Summary ---
Author Organization [facility] Address [address] [place] [address] Phone Care Team Providers Care Melt Supervisor Name Role Phone Tosin Peraza MD Primary [...] Vaccines Completed 04/07/2007, 09/11, 07/26/2006 Meningococcal Vaccine Completed 04/07/2007 Hepatitis A Vaccines Aged Out No long er eligible based on patient's age to complete this topic Men B Vaccine Aged Out No longer elig ible based on patient's age to complete this topic Pneumococcal Vaccine Aged Out No long er eligible based on patient's age to complete this topic Care Teams Melt Supervisor Relationship Specialty Start Date End Date Tosin Peraza MD PCP - General 09/21/16
--- OUTSIDE RECORDS SUMMARY | 2025-01-30 16:50 | XMS_ITS | Encounter Summary ---
Author Organization [facility] Address [address] [place] [address] Care Team Providers Care Montessori Program Director Name Role Phone Rand Robert MD Primary Care Provider [phone] Encounter Details Date Type Department Care Team (Late st Contact Info) Description 11/30/2016 External Result Entry [facility] [address] [place] [address] Rand Robert MD [address] [place] [address] Social History Tobacco Use Types Packs/Day Years Used Date Smoking Tobacco: Former Comments:: Comments Unknown Sex and Gender Information Value Date Recorded Sex Assigned at Female 10/03/2018 11:47 AM EDT Legal Sex Female 8:02 AM EDT Gender Identity Female 08/27/2017 10:41 AM EDT Sexual Orientation Straight 10/03/2018 11 :47 AM EDT documented as of this encounter Plan of Treatment Upcoming Encounters Date Type Department Care Team (Late st Contact Info) Description 02/25/2025 2:45 PM EST Office Visit [facility] [address] [place] [address] Rand Robert MD [address] [place] [address] 03/31/2025 9:45 AM EST Office Visit [facility] [address] [place] [address] Rand Robert MD [address] [place], [place] [phone] documented as of this encounter Procedures * Due to [facility] law, this organization might not be sharing negative HIV tests. Procedure Name Priority Date/Time Associated Diagnosis Comments HM EYE EXAM - GENERAL Routine 11/30/2016 documented in this encounter Results * Due to [place] state law, this organization might not be sharing negative HIV tests. * HM Eye Exam, General (11/30/2016) 11/30/2016 us Unknown Provider HEALTH MAINTENANCE Final Res ult documented in this encounter Visit Diagnoses Not on filedocumented in this encounter Additional Health Concerns Infection Onset Date Last Indicated Resolved Time COVID-19 - Suspected infection 10/27/2019 10/27/2019 10/27/2019 11:08 PM EDT COVID-19 - Suspected infection 01/22/2020 01/22/2020 01/22/2020 6:05 PM EST COVID-19 - Suspected infection 12/13/2020 12/13/2020 12/13/2020 5:40 PM EDT COVID-19 - Suspected infection 01/10/2021 01/10/2021 11/01/2022 10:36 PM EDT R/O Respiratory Virus Infection 01/30/2021 02/01/2021 6:27 PM EST R/O Influenza 01/30/2021 02/01/2021 02/01/2021 6:2 7 PM EST COVID-19 - Suspected infection 01/30/2021 02/01/2021 02/01/2021 6:27 PM EST COVID-19 - Confirmed infecti on Comment:More than 10 days from initial infection 02/01/2021 02/01/2021 02/13/2021 2:[address] R/O Respiratory Virus Infection 03/20/2023 03/20/2023 2:49 PM EST R/O Influenza 03/20/2023 03/20/2023 03/20/2023 2:4 9 PM EST COVID-19 - Suspected infection 03/20/2023 03/20/2023 03/20/2023 2:49 PM EST documented as of this encounter Care Teams Montessori Program Director Relationship Specialty Start Date End Date Rand Robert MD [address] [place], [place] [phone] PCP - General Internal Medicine 11/17/16 documented as of this encounter
--- OUTSIDE RECORDS SUMMARY | 2025-01-30 16:50 | XMS_ITS | Encounter Summary ---
Author Organization [facility] Address [address] [place] [phone] Phone Care Team Providers Care Cloth Laminating Supervisor Name Role Phone Tosin Peraza MD Primary Care Provider Unavailabl e Encounter Details Date Type Department Care Team (Late st Contact Info) Description 12/13/2016 Conversion Encounter [facility] - [address] [address] Social History Tobacco Use Types Packs/Day Years [...] on filedocumented in this encounter Care Teams Cloth Laminating Supervisor Relationship Specialty Start Date End Date Tosin Peraza MD PCP - General 09/21/16 documented as of this encounter
--- OUTSIDE RECORDS SUMMARY | 2025-01-30 16:50 | XMS_ITS | Patient Health Record ---
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 Alcohol: Occasional Recreational drug use: Denies cu rrent use Exercise: None Marital status Lives with husba nd and 2 children Caffeine Cups coffee/ tea per day: 2, cup of Pepsi most days Problems Problem Type SNOMED Code ICD Code Onset Dates Problem Status W/U Status Risk Notes Problem Obstructive sleep apnea syndrome (35157886) NOHEMY (obstructiv e sleep apnea) (G47.33) Active confirmed Plan Of Treatment No Information Insurance Providers Payer Name Payer Address Payer Phone Subscriber Number Group Number Insured Name Patient Relationship to Insured Coverage Start Date Coverage End Date The Grounds Keeper, [facility] [address] [place] [address] [id number] Johana Roque Self - patient is the insured Medical (General) History Medical History History ICD Code Asthma Esophageal reflux Anxiety Depression Surgical History Surgery Date(Month/Year) section x 2
--- OUTSIDE RECORDS SUMMARY | 2025-01-30 16:50 | XMS_ITS | Clinical Summary ---
Author Organization [facility] Address [address] [place] [address] Care Team Providers Care Cash Applications Specialist Name Role Phone Unavailable Primary Care Provider [...]
--- OUTSIDE RECORDS SUMMARY | 2025-01-30 16:50 | XMS_ITS | Encounter Summary ---
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 Not on file Not on file documented as of this encounter Plan of Treatment Upcoming Encounters Date Type Department Care Team (Late st Contact Info) Description 02/25/2025 2:45 PM EST Office Visit [facility] [address] [place], [place] [phone] Rand Robert MD [address] [place] [address] 03/31/2025 9:45 AM EST Office Visit [facility] [address] [place] [address] Rand Robert MD [address] [place] [address] documented as of this encounter Visit Diagnoses [...] documented as of this encounter Care Teams Worm Sorter Relationship Specialty Start Date End Date Rand Robert MD [address] [place] [address] PCP - General Internal Medicine 11/17/16 documented as of this encounter
--- OUTSIDE RECORDS SUMMARY | 2025-01-30 16:51 | XMS_ITS | Clinical Summary ---
Author Organization [facility] Address [address] [place] [address] Care Team Providers Care Valver Name Role Phone Rand Robert MD Primary Care Provider [phone] Allergies No known active allergies Medications * This document contains information received from the source organization and may not represent a complete record from that organization. DULoxetine DR (CYMBALTA) 30 mg capsule Take 1 capsule (30 mg total) by mouth once a day. 90 capsule 01/29/[address] (PROTONIX) 20 mg tabletIndicatio ns:Nausea,Gastr itis without bleeding, unspecified chronicity, unspecified gastritis type Take 1 tablet (20 mg total) by mouth once a day. 90 tablet 01/29/20 25 Active potassium chloride ER (KLOR-CON) 20 mEq tablet Take 2 pills now. Repeat in 4 hours. Then take 2 pills a day on Saturday and Saturday then decrease to 1 pill a day 30 tablet 01/29/20 25 Active multivitamin tablet,chewable Chew and swallow 1 tablet by mouth daily. 30 each 5 09/13/19 19 025 Discontinued valACYclovir (VALTREX) 1 gram tabletIndicatio ns:Cold sore Take 2 tablets (2,000 mg total) by mouth 2 times a day. 4 tablet 07/14/19 21 025 Discontinued ibuprofen (MOTRIN) 800 mg tabletIndicatio ns:LLQ pain Take 1 tablet (800 mg total) by mouth every 8 hours as needed for pain. 30 tablet 1 08/01/20 23 025 Discontinued famotidine (PEPCID) 20 mg tablet Take by mouth. [address] (CYMBALTA) 60 mg capsuleIndicati ons:Generalized anxiety disorder Take 1 capsule (60 mg total) by mouth once a day. 30 capsule 11 11/08/19 23 025 Discontinued mirtazapine (REMERON) 15 mg tabletIndicatio ns:Major depressive disorder, recurrent, moderate (HCC),Generaliz ed anxiety disorder TAKE 1 TABLET BY MOUTH EVERY DAY AT NIGHT 30 tablet 2 03/19/19 24 025 Discontinued fluticasone propionate (FLONASE) 50 mcg/actuation nasal spray SPRAY 1 SPRAY INTO EACH NOSTRIL EVERY DAY 32 mL 1 03/25/19 24 025 Discontinued Hospital, Clinic, or Other Facility Administered Medication Ordered Dose Route Frequency Start Date End Date Status cyanocobalamin (VITAMIN B12) injection 1,000 mcg 1000 mcg subcutaneo Every 30 days 11/29/2022 01/29/20 25 Discontinued Active Problems Problem Noted Date Diagnosed Date Eustachian tube dysfunction, bilateral 3 B12 deficiency 11/22/2022 Assessment & Plan (01/28/2025 5:03 PM EST): History of B12 deficiency not responding to sublingual tablets she used to be on injections and not taking them in a while. Recheck the numbers Orders: Vitamin B12; Future Left lower quadrant abdominal pain 05/18/2022 Irregular menses 06/26/2021 Imbalanced nutrition 02/26/2019 Assessment & Plan (03/14/2020 2:09 PM EST): Seems to be doing very well. I am a bit concerned about the fact that she is tired but also still feels full and therefore does not eat. She also has no idea about the amount of protein that she is eating in a day. I asked her to track that. I am pleased with her overall weight loss however. She is as well. She has had a large amount of weight loss and therefore her excess skin is causing rashes and what sounds like fungal overgrowth. She would like to see a plastic surgeon. I did place that referral. Overall, I would like her to continue her efforts at exercise, and also eat more consistently throughout the day. I also think that she should track her protein intake to make sure that she is getting at least 70 to 80 g daily. I will have her follow-up in 6 months with our long-term clinic. I spent more than 8 minutes of my 10 minute [id number] time counseling the patient regarding strategies for obtaining and maintaining weight loss after sleeve gastrectomy surgery, with additional chart review making the total visit time 15 minutes. Assessment & Plan (03/03/2019 8:15 AM EST): Does not seem to be eating enough. This is seemingly due to postprandial epigastric and right upper quadrant pain. I did encourage her to maintain a diet that is high in protein and low in refined carbohydrates. Hopefully as her energy increases she will be able to exercise more and we did discuss that as well. I advised her to keep her fluid intake up. I also advised her to try to maintain a diet that is low in fats. I also sent the patient for labs looking for micronutrient deficiencies. I will follow-up regarding those results. I spent more than 10 minutes of my 15 minute [id number] time counseling the patient regarding strategies for obtaining and maintaining weight loss after sleeve gastrectomy surgery. S/P laparoscopic sleeve gastrectomy 09/29/2018 Overview (02/26/2019): Preoperative comorbidities: GERD, NOHEMY, asthma Assessment & Plan (01/28/2025 5:03 PM EST): 2019 Has malabsorption since then Will check iron levels, B12, CBC, CMP Orders: Iron, TIBC and Ferritin Panel; Future Assessment & Plan (10/24/2020 1:32 PM EDT): Procedure: Robotic Assisted Sleeve Gastrectomy Procedure Date: 09/2018 Preoperative Weight: 218 lbs / BMI 40 Last visit weight: 127 lbs Today's Weight: 56.7 kg (125 lb) / Body mass index is 22.86 kg/m . Was anticoagulation initiated for presumed/confirmed vein thrombosis/PE? No Was an incisional hernia noted on exam? No Sleep apnea requiring CPAP: No GERD requiring meds: No Hyperlipidemia: No Hypertension: No Diabetes: No Patient denies any wound infection following surgery. She is consuming a recommended banana protein. She is exercising regularly. She is consuming all recommended supplementation. She has reached her goal weight. 10 minutes of our 10-minute encounter time was used to discuss medications, diet, exercise, supplementation and future plan of care. We will follow-up with her in 1 year for her 3-year follow- up. Assessment & Plan (03/14/2020 1:55 PM EST): Procedure: Laparoscopic Sleeve Gastrectomy Procedure Date: 09/12/2018 Preoperative Weight: 218 lbs / BMI 40 Last visit weight: 139 lbs Today's Weight: 57.6 kg (127 lb) / Body mass index is 23.23 kg/m . Was anticoagulation initiated for presumed/confirmed vein thrombosis/PE? No Was an incisional hernia noted on exam? No Sleep apnea requiring CPAP: No GERD requiring meds: No Hyperlipidemia: No Hypertension: No Diabetes: No Assessment & Plan (10/12/2019 2:52 PM EDT): Procedure: Laparoscopic Sleeve Gastrectomy Procedure Date: 09/12/2018 Preoperative Weight: 218 lbs / BMI 40 Last visit weight: 158 lbs Today's Weight: 63 kg (139 lb) / Body mass index is 25.42 kg/m . Was anticoagulation initiated for presumed/confirmed vein thrombosis/PE? No Was an incisional hernia noted on exam? No Sleep apnea requiring CPAP: No GERD requiring meds: No Hyperlipidemia: No Hypertension: No Diabetes: No In summary, the patient is a very pleasant 34-year-old female who underwent laparoscopic sleeve gastrectomy is doing very well. Patient did report having a setback in the last 2 months where she has been succumbing to cravings for sweets. We did decide that she is likely protein deficient. She will increase her protein intake and start to go back to her morning shakes which she was having since her surgery. She was recommended to increase her exercise. Were sending her for labs today to detect micronutrient deficiencies and we will follow-up with her on those results. 10 minutes our 15-minute encounter time was used discussed strategies on how to continue to lose weight and maintain weight loss after having laparoscopic sleeve gastrectomy via diet exercise. Assessment & Plan (02/26/2019 3:21 PM EST): Procedure: Laparoscopic Sleeve Gastrectomy Procedure Date: 09/12/2018 Preoperative Weight: 218 lbs / BMI 40 Last visit weight: 187 lbs Today's Weight: 71.7 kg (158 lb) / Body mass index is 28.9 kg/m . Was anticoagulation initiated for presumed/confirmed vein thrombosis/PE? No Was an incisional hernia noted on exam? No Sleep apnea requiring CPAP: No GERD requiring meds: No Hyperlipidemia: No Hypertension: No Diabetes: No Assessment & Plan (10/30/2018 2:17 PM EDT): Procedure: Laparoscopic Sleeve Gastrectomy Procedure Date: 09/12/2018 Preoperative Weight: 218 lbs / BMI 40 Last visit weight: 195 lbs Today's Weight: 84.8 kg (187 lb) / Body mass index is 34.2 kg/m . Preoperative comorbidities: GERD, NOHEMY, asthma Dyspareunia in female 06/13/2018 Assessment & Plan (06/13/2018 12:16 PM EDT): Exam normal today. Will screen for STIs. Will determine need for further evaluation based on labwork results. Psychological factor affecting physical conditio n 01/24/2018 Healthcare maintenance 05/23/2017 Assessment & Plan (05/23/2017 6:50 PM EDT): Encouraged cessation of smoking marijuana. Encouraged regular wearing of seatbelt. Encourage patient to schedule appointment with gynecology to update Pap. Follow- up for one-year physical and on a as needed basis. Obstructive sleep apnea 07/18/2016 Assessment & Plan (06/13/2018 12:12 PM EDT): Continues on CPAP Assessment & Plan (05/23/2017 6:47 PM EDT): Intolerant of CPAP. Encouraged efforts in weight loss. Allergic rhinitis 05/21/2016 Assessment & Plan (06/13/2018 12:13 PM EDT): Continue with flonase Iron deficiency 09/17/2015 Overview (03/07/2021): 03/2021 EGD Assessment & Plan (05/23/2017 6:47 PM EDT): Will update CBC and iron studies. Body dysmorphic disorder with poor insight 09/12 Major depressive disorder, r ecurrent episode, moderate with anxious distress 09/13/2015 Overview (03/07/2021): Sertraline and lexapro not effective 02/2021 Doing well on duloxetine, remeron 7.5 too somnolent, switched to amitryptiline for added benefit of helping abdominal pain. Assessment & Plan (06/13/2018 12:17 PM EDT): Contracted for safety. Well controlled, will continue lexapro 20mg daily. Encouraged couples counseling. Assessment & Plan (08/01/2017 4:15 PM EDT): Contracted for safety. Will increase lexapro to 20mg daily. Follow up in 3 months. Assessment & Plan (05/23/2017 6:49 PM EDT): Continue with citalopram daily. Contracted for safety. Low back pain 08/10/2015 Generalized anxiety disorder 08/10/2015 Assessment & Plan (01/28/2025 5:03 PM EST): Cymbalta is being started I wonder if the episodes described above with dizziness, feeling flushed and tremulous and followed by crying and dizziness are manifestation of panic attacks Assessment & Plan (06/13/2018 12:14 PM EDT): Stable, will monitor. Assessment & Plan (05/23/2017 6:48 PM EDT): Continue with escitalopram 10 mg. Esophageal reflux 04/04/2011 Overview (12/18/2022): 01/2021 Early satiety, decreased appetite 02/2021 no effect with famotidine or prilosec 03/2021 scheduled for EGD. It showed grade a esophagitis and small hiatal hernia. Otherwise surgery site looked good. Assessment & Plan (06/13/2018 12:14 PM EDT): Continue with PRN omeprazole Assessment & Plan (05/23/2017 6:48 PM EDT): Continue with as needed omeprazole. Symptoms improving with dietary adjustments. Asthma 11/12/2007 Assessment & Plan (12/18/2018 6:07 PM EST): Well-controlled on current regimen. Assessment & Plan (06/13/2018 12:13 PM EDT): Well controlled, continue flovent BID and prn proair. Assessment & Plan (05/23/2017 6:47 PM EDT): Continue with Flovent and pro-air as needed. Encouraged avoiding smoking marijuana as it will exacerbate underlying lung disease. Resolved Problems Problem Noted Date Diagnosed Date Resolved Date Abnormal uterine bleeding 10/04/2022 Surgical follow-up care 06/10/2020 09/0 06/2023 Panniculitis 04/05/2020 05/13/[address] D (sexually transmitted disease) 03/26/2019 10/17/2023 Right upper quadrant abdominal pain 02/26/2019 01/26/2021 Assessment & Plan (03/03/2019 8:16 AM EST): Postprandial epigastric pain with bloating as well as some nausea. She also has some mild right upper quadrant tenderness on exam. She also has some right-sided shoulder pain. As such, I suspect that she has chronic cholecystitis with or without calculus. I will have her undergo a right upper quadrant ultrasound to determine the absence or presence of gallstones. If that is negative, then I will have her undergo a HIDA scan with CCK provocation. I do anticipate that she will need a cholecystectomy as this is common following bariatric procedures. I explained all this to her and she is in agreement with this plan. Skin texture changes 12/18/2018 024 Assessment & Plan (12/18/2018 6:08 PM EST): Will check TSH. Well woman exam with routine gynecological exam 11/11/2018 10/17/2023 Well woman exam with routine gynecological exam 08/27/2017 06/12/2018 Anxiety and depression 08/13/201703/07 Overweight (BMI 25.0-29.9) 05/23/2017 1 03/29/2020 Assessment & Plan (12/18/2018 6:08 PM EST): Patient very happy with current weight loss and would like to continue to lose good no further. Current BMI is 31. Following up with general surgery in February. Assessment & Plan (06/13/2018 12:13 PM EDT): Will contact [facility] regarding next follow up. Assessment & Plan (08/01/2017 4:14 PM EDT): Referral placed for weight center. Assessment & Plan (05/23/2017 6:48 PM EDT): Encouraged continuing with healthy diet and weight loss efforts. Asthmatic bronchitis without complication 04/26/2017 05/23/2017 Bruising 05/21/2016 05/23/2017 Urinary symptom or sign 09/25/201504/11 Microscopic hematuria 09/17/20152017 Folliculitis 09/07/2015 05/23/2017 Epistaxis 09/07/2015 05/23/2017 Fatigue 09/07/2015 05/23/2017 Encounters Date Type Department Care Team Description 01/30/2025 Telephone [facility] [address] [place] [address] Rand Robert MD 01/28/2025 12:45 PM EST Office Visit [facility] [address] [place] [address] Rand Robert MD Other fatigue (Primary Dx); Stress; Arthralgia, unspecified joint; Dizziness; B12 deficiency; S/P laparoscopic sleeve gastrectomy; Diarrhea, unspecified type; Nausea; Gastritis without bleeding, unspecified chronicity, unspecified gastritis type; Generalized anxiety disorder; Hypokalemia; Weight loss 01/27/2025 Telephone [facility] [address] [place], [place] [id number] Telephone Intake, Staff PAC Clinical Assessment; PT returning call to clinic from Last 3 Months Immunizations Immunization Administration Dates Next Due COVID-19, Pfizer, mRNA, Biva lent Booster, PF, 30 mcg/0.3 mL dose (for age 12 y and up) 10/04/2022 Covid-19, Pfizer, mRNA, [place] valent, PF 30 mcg/0.3 mL dose (for ages 12 and older) 01/26/2021,05/27/2020,05/05/2020 Diphtheria, Tetanus Toxoids and Pertussis Vaccine 10/11/1998,12/11/1997,10/11/1997,08/10,07/12/1991 Haemophilus Influenzae Type B Vaccine, PRP-T Conjugate 06/10/1989 Hepatitis B Vaccine, Pediatr ic or Pediatric/Adolescent Dosage 04/18/2000,01/29/2000,10/27/1999 Hepatitis B adult (ENGERIX-B/RECOMBIVAX HB ADULT) vaccine 1 mL IM 10/26/2016,06/08/2016,09/07/2015 Human Papilloma Virus Vaccin e, Quadrivalent 04/07/2007,09/26/2006,07/26/2006 INFLUENZA, SPLIT VIRUS, TRIVALENT, PF 12/24/2011 Influenza, Injectable, Quadr ivalent, Preservative Free 11/22/2022,01/26/2021,12/18/2018 Influenza, Trivalent, MDV, Injectable 02/10/2004 Measles, Mumps, and Rubella Vaccine 09/10/1998,0 07/12/1991 Meningococcal Polysaccharide (Groups A, C, Y and W-135) Diphtheria Toxoid Conjugate Vaccine (MCV4P) 04/07/2007 PPD Test 03/03/2019 Pneumococcal Polysaccharide Vaccine, 23 Valent 06/12/2018 Poliovirus Vaccine, Inactivated 10/11/18 99,10/11/1997,08/10/1997,07/11 Tetanus Toxoid, Reduced Diph theria Toxoid, and Acellular Pertussis Vaccine, Adsorbed 06/02/2012,11/12/2007,11/12/2007,04/07 Tetanus and Diphtheria Toxoi ds, Adsorbed, Preservative Free (2 Lf of Tetanus Toxoid and 2 Lf of Diphtheria Toxoid) 10/27/1999 Tetanus and Diphtheria Toxoi ds, Adsorbed, Preservative Free, for Adult Use (5 Lf of Tetanus Toxoid and 2 Lf of Diphtheria Toxoid) 10/04/2022 Tuberculin Skin Test; Mikiifi ed Protein Derivative Solution, Intradermal 06/06/2016 Varicella Virus Vaccine 10/27/1999 Family History Medical History Relation Name Comments Eczema Daughter Hypertension Father Polycystic ovary syndrome Father's Sister Other Maternal Grandmother Family History of colon cancer /Family History of type 2 diabetes mellitus Heart disease Mother Hypertension Mother Other Mother Family history of HTN (hypertension), benign Other Mother's Brother Family Hist ory of type 2 diabetes mellitus Other Mother's Sister 1 Family His tory of ovarian cancer at age 47 Other Mother's Sister 2 Family His tory of malignant neoplasm of breast Polycystic ovary syndrome Paternal Grandmother Other Sister 1 Family history of HTN (hypertension), benign Polycystic ovary syndrome Sister 1 Thyroid disease Sister 1 Polycystic ovary syndrome Sister 2 Thyroid disease Sister 2 No Known Problems Sister 3 No Known Problems Sister 4 No Known Problems Sister 5 No Known Problems Sister 6 Asthma Son Relation Name Status Comments Daughter Father Father's Sister Maternal Grandmother Mother Mother's Brother Mother's Sister 1 Mother's Sister 2 Paternal Grandmother Sister 1 Sister 2 Sister 3 Sister 4 Sister 5 Sister 6 Son Social History Tobacco Use Types Packs/Day Years Used Date Smoking Tobacco: Former Cigarettes 4 2 018 - 02/04/2021 Smokeless Tobacco: Never Comments:currently vaping Alcohol Use Standard Drinks/Week Comments Yes 0 (1 standard drink = 0.6 oz pur e alcohol) Occasionally [employer] Utilities Answer Date Recorded In the past 12 months has [employer], gas, oil, or water [employer] threatened to shut off services in your [...] 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 Not on file Not on file Last Filed Vital Signs Vital Sign Reading Time Taken Comments Blood Pressure 104/70 01/28/2025 12:53 PM EST Pulse 82 01/28/2025 12:53 PM EST Temperature 36.8 C (98.3 F) 01/28/2025 12:51 PM EST Respiratory Rate 16 05/03/2023 8:20 AM EDT Oxygen Saturation 100% 01/28/2025 12:51 PM EST Inhaled Oxygen Concentration - - Weight 54.4 kg (120 lb) 01/28/2025 12:51 PM EST Height 157.5 cm (5' 2.01 ) 10/04/2022 12:59 PM E DT Body Mass Index 21.94 10/04/2022 12:59 PM EDT Plan of Treatment Upcoming Encounters Date Type Department Care Team (Late st Contact Info) Description 02/25/2025 2:45 PM EST Office Visit [facility] [address] [place] [address] Rand Robert MD [address] [place] [address] 03/31/2025 9:45 AM EST Office Visit [facility] [address] [place] [address] Rand Robert MD [address] [place] [id number] Health Maintenance Due Date Last Done Comments HPV and Pap Smear 07/21/2017 07/21/2012, , 06/06/2010, Additional history exists Cervical Cancer Screening 04/19/2023 Pap Smear 04/19/2023 04/18/2020, 08/11, 07/21/2012, Additional history exists Alcohol/Substance Use Screening 02/12/2024 Depression Screening and Follow-Up 02/12/2024 03/19/2023 Oral Health Screening 02/12/2024 10/04/2022 Social Drivers of Health Frieda ual Screening 02/12/2024 Influenza Vaccine (#1) 2024 , 01/26/2021, 12/18/2018, Additional history exists COVID-19 Vaccine (5 - 2024-2 6 season) 2024 10/04/2022, 01/26/2021, 05/27/2020, Additional history exists DTaP,Tdap,and Td Vaccines (1 0 - Td or Tdap) 10/04/2032 10/04/2022, 06/02/2012, 11/12/2007, Additional history exists Varicella Vaccines Discontinued 10/27/1999 Hepatitis B Vaccines Completed 10/26/2016, 06/08/2016, 09/07/2015, Additional history exists Pneumococcal Vaccine: Pediat loreta (0-5 Years) and At-Risk Patients (6-50 Years) Discontinued 06/12/2018 HIV Screening Completed 04/22/2023, 06/11, 07/26/2020, Additional history exists Hepatitis C Screening Completed 04/22/2023 , 06/26/2021, 07/26/2020, Additional history exists Procedures * Due to [place] state law, this organization might not be sharing negative HIV tests. Procedure Name Priority Date/Time Associated Diagnosis Comments CORTISOL AM Routine 01/30/2025 8:55 AM EST Other fatigue Nausea Hypokalemia POTASSIUM Routine 01/30/2025 8:55 AM EST Arthralgia, unspecified joint H PYLORI BREATH TEST Routine 01/28/2025 2:48 PM EST Nausea FERRITIN Routine 01/28/2025 2:40 PM EST S/P laparoscopic sleeve gastrectomy IRON SATURATION Routine 01/28/2025 2:40 PM EST S/P laparoscopic sleeve gastrectomy COMPREHENSIVE METABOLIC PANEL Routine 01/28/2025 2:40 PM EST Other fatigue Diarrhea, unspecified type CBC AUTO DIFFERENTIAL Routine 01/28/2025 2:40 PM EST Other fatigue Diarrhea, unspecified type IRON, TIBC AND FERRITIN PANEL (5616) Routine 01/28/2025 2:40 PM EST S/P laparoscopic sleeve gastrectomy VITAMIN B12 Routine 01/28/2025 2:40 PM EST B12 deficiency TSH REFLEX FREE T4 Routine 01/28/2025 2: 40 PM EST Diarrhea, unspecified type HEMOGLOBIN A1C Routine 01/28/2025 2:40 PM EST Other fatigue LYME ANTIBODY SCREEN W/REFLEX TO BLOT Routine 01/28/2025 2:40 PM EST Other fatigue Arthralgia, unspecified joint SEDIMENTATION RATE, AUTOMATED Routine 01/28/2025 2:40 PM EST Arthralgia, unspecified joint C-REACTIVE PROTEIN Routine 01/28/2025 2: 40 PM EST Arthralgia, unspecified joint HEPATITIS C ANTIBODY W/REFLEX TO HCV RNA, QUANTITATIVE PCR Routine 04/22/2023 8:46 AM EDT Cold sore PAP Routine 04/18/2020 1:41 PM EST Pelvic pain PAP W/REFLEX HPV, CONVERSION Routine 07/21/2012 9:04 AM EDT from Last 3 Months or Most Recently Relevant to Health Maintenance Results * Due to [place] state law, this organization might not be sharing negative HIV tests. * Cortisol AM (01/30/2025 8:55 AM EST) [facility] Cortisol-AM 12.6 6.7 - 22.6 ug/dL 01/30/2025 9:57 AM EST [facility] Blood Structure of peripheral vein / Unknown Venipuncture / Unknown 01/30/2025 8:55 AM EST 01/30/2025 9:16 AM EST Rand Robert MD LAB BLOOD ORDERABLES Final Resul t Performing Organization Address [facility] Co de Phone Number [facility] [address] [place] [address] * (ABNORMAL) Potassium (01/30/2025 8:55 AM EST) [facility] K 2.9(LL) 3.5 - 5.3 mmol/L 01/30/2025 10:12 AM EST [facility] Blood Structure of peripheral vein / Unknown Venipuncture / Unknown 01/30/2025 8:55 AM EST 01/30/2025 9:16 AM EST Rand Robert MD LAB BLOOD ORDERABLES Final Resul t Performing Organization Address [facility] Co de Phone Number [facility] [address] [place] [address] * (ABNORMAL) H pylori Breath Test (01/28/2025 2:48 PM EST) [facility] Helicobacter Pylori, Urea Breath Test DETECTED (A) NOT DETECTED 01/29/2025 3:17 PM EST [facility] Comment: Antimicrobials, proton pump inhibitors, and [...] EST 01/28/2025 3:12 PM EST Narrative [facility] - 01/29/2025 3:17 PM EST [facility] Received Date: Rand Robert MD LAB BLOOD ORDERABLES Final Resul t [facility] [address], [place] [address], [place] [phone] [facility] [address], [place] [address], [place] [phone] * (ABNORMAL) Iron Saturation (01/28/2025 2:40 PM EST) Iron Saturation 9(L) 20 - 50 % 4:00 PM EST [facility] Iron 32 30 - 160 ug/dL 01/28/2025 4:00 PM EST [facility] Transferrin 289 200 - 360 mg/dL 01/28/2025 4:00 PM EST [facility] Total Iron Binding Capacity 361 255 - 450 ug/dL 01/28/2025 4:00 PM EST [facility] Blood Structure of peripheral vein / Unknown Venipuncture / Unknown 01/28/2025 2:40 PM EST 01/28/2025 3:15 PM EST us Rand Robert MD LAB BLOOD ORDERABLES Final Resul t [facility] [address] [place] [address], * TSH Reflex Free T4 (01/28/2025 2:40 PM EST) TSH 0.946 0.280 - 3.890 uIU/mL 01/28/2025 4:00 PM EST [facility] Comment: Females: 1st trimester 0.150-4.000 IU/mL 2nd trimester 0.310-4.170 IU/mL 3rd trimester 0.380-4.150 IU/mL Blood Structure of peripheral vein / Unknown Venipuncture / Unknown 01/28/2025 2:40 PM EST 01/28/2025 3:15 PM EST us Rand Robert MD LAB BLOOD ORDERABLES Final Resul t [facility] PATHOLOGY LABORATORY [address] [place] [address], * (ABNORMAL) CBC Auto Differential (01/28/2025 2:40 PM EST) WBC 6.5 3.8 - 10.8 10*3/uL 01/28/2025 3:22 PM EST [facility] RBC 4.03 3.80 - [...] - 400 10*3/uL 01/28/2025 3:22 PM EST [facility] MPV 11.2 7.5 - 12.5 fL 01/28/2025 3:22 PM EST [facility] Neutrophil % 48.6 % 01/28/2025 3:22 PM EST [facility] Immature Grans % 0.2 0.0 - 0.9 % 01/28/2025 3:22 PM EST [facility] Lymphocyte % 42.2 % 01/28/2025 3:22 PM EST [facility] Monocyte % 8.0 % 01/28/2025 3:22 PM EST [facility] Eosinophil % 0.5 % 01/28/2025 3:22 PM EST [facility] Basophil % 0.5 % 01/28/2025 3:22 PM EST [facility] Neutrophil # 3.18 1.50 - 7.80 10*3/uL 01/28/2025 3:22 PM EST [facility] Immature Grans # <0.03 <=0.03 10*3/uL 01/28/2025 3:22 PM EST [facility] Lymphocyte # 2.80 0.85 - 3.90 10*3/uL 01/28/2025 3:22 PM EST [facility] Monocyte # 0.50 0.20 - 0.95 10*3/uL 01/28/2025 3:22 PM EST [facility] Eosinophil # <0.03 0.02 - 0.50 10*3/uL 01/28/2025 3:22 PM EST [facility] Basophil # <0.03 0.00 - 0.20 10*3/uL 01/28/2025 3:22 PM EST [facility] nRBC % 0.0 /100 WBCs 01/28/2025 3:22 PM EST [facility] CLINICAL PATHOLOGY LABORATORY nRBC # <0.01 <0.01 10*3/uL 01/28/2025 3:22 PM EST [facility]ICAL [facility]OLOG[facility] LABORATORY Blood Structure of peripheral vein / Unknown Venipuncture / Unknown 01/28/2025 2:40 PM EST 01/28/2025 3:13 PM EST Rand Robert MD LAB BLOOD ORDERABLES Final Resul t [facility] [address] [place] [address], [place] * Lyme Antibody Screen w/Reflex to Blot (01/28/2025 2:40 PM EST) Lyme Ab Screen <0.90 index 01/29/2025 1:49 AM EST [facility] Comment: Index Interpretation ----- < 0.90 Negative [...] 2:40 PM EST 01/28/2025 3:12 PM EST Narrative [facility] 01/29/2025 1:49 AM EST [facility] Received Date:[id number] us Rand Robert MD LAB BLOOD ORDERABLES Final Resul t [facility] [address] [place] [address] 3rd Floor, [place] [address], [place] [phone] [facility] [address] Floor, [place] [address], [place] [phone] * (ABNORMAL) Sedimentation Rate (01/28/2025 2:40 PM EST) Sed Rate 69(H) <20 mm/Hr mm/Hr 01/28/2025 3:27 PM EST [facility] CLINICAL PATHOLOGY LABORATORY Blood Structure of peripheral vein / Unknown Venipuncture / Unknown 01/28/2025 2:40 PM EST 01/28/2025 3:13 PM EST Rand Robert MD LAB BLOOD ORDERABLES Final Resul t Performing Organization Address [facility] Co de Phone Number [facility] LAB[facility]ORY [address] [place] [address], [place] * (ABNORMAL) C-Reactive Protein (01/28/2025 2:40 PM EST) Pathologist [facility] C Reactive Protein 47.9(H) <=9.9 mg/L 01/28/2025 4:00 PM EST [facility] CLINICAL PATHOLOGY LABORATORY Blood Structure of peripheral vein / Unknown Venipuncture / Unknown 01/28/2025 2:40 PM EST 01/28/2025 3:15 PM EST us Rand Robert MD LAB BLOOD ORDERABLES Final Resul t Performing Organization Address City/[facility]/ZIP Co de Phone Number [facility] [address] [place] [address], [place] * Hemoglobin A1c (01/28/2025 2:40 PM EST) Hemoglobin A1C 5.4 <5.7 % 01/28/2025 8:53 PM EST [facility] Comment: For the purpose of screening for the presence of diabetes: <5.7% Consistent with the absence of diabetes 5.7-6.4% Consistent with increased risk for diabetes (prediabetes) > or =6.5% Consistent with diabetes This assay result is consistent with a decreased risk of diabetes. Currently, no consensus exists regarding use of hemoglobin A1c for diagnosis of diabetes in children. According to [place] Diabetes Association (ADA) guidelines, hemoglobin A1c <7.0% represents optimal control in non- diabetic patients. Different metrics may apply to specific patient populations. Standards of Medical Care in Diabetes(ADA). eAG (MG/DL) 108 mg/dL 01/28/2025 8:53 PM EST [facility] eAG (MMOL/L) 6.0 mmol/L 01/28/2025 8:53 PM EST [facility] Blood Structure of peripheral vein / Unknown Venipuncture / Unknown 01/28/2025 2:40 PM EST 01/28/2025 3:13 PM EST Narrative [facility] - 01/28/2025 8:53 PM EST [facility] Received Date: Rand Robert MD LAB BLOOD ORDERABLES Final Resul t Performing Organization Address City/[facility]/ZIP Co de Phone Number [facility] [address] [facility] [address]rd Floor, [place] [address], [place] [phone] [facility] [address], [place] [address], [place] [phone] * Ferritin (01/28/2025 2:40 PM EST) [facility] Ferritin 46.6 11.0 - 306.0 ng/mL 01/28/2025 4:00 PM EST [facility] CLINICAL PATHOLOGY LABORATORY Blood Structure of peripheral vein / Unknown Venipuncture / Unknown 01/28/2025 2:40 PM EST 01/28/2025 3:15 PM EST Rand Robert MD LAB BLOOD ORDERABLES Final Resul t [facility] CLINICAL PATHOLOGY LABORATORY [address] [place] [address], * Vitamin B12 (01/28/2025 2:40 PM EST) Pathologist [facility] Vitamin B12 433 232 - 1,245 pg/mL 01/28/2025 4:00 PM EST [facility] CLINICAL PATHOLOGY LABORATORY Blood Structure of peripheral vein / Unknown Venipuncture / Unknown 01/28/2025 2:40 PM EST 01/28/2025 3:15 PM EST us Rand Robert MD LAB BLOOD ORDERABLES Final Resul t [facility] CLINICAL PATHOLOGY LABORATORY [address] [place] [address], * (ABNORMAL) Comprehensive Metabolic Panel (01/28/2025 2:40 PM EST) Pathologist [facility] NA 143 135 - 145 mmol/L 01/28/2025 4:00 PM EST [facility] CLINICAL PATHOLOGY LABORATORY K 3.1(L) 3.5 - 5.3 mmol/L 01/28/2025 4:00 PM EST [facility] CL[facility]ICAL [facility] LABORAT[facility] Cl 101 97 - 110 mmol/L 01/28/2025 4:00 PM EST [facility] LAB[facility] CO2 29 22 - 32 mmol/L 01/28/2025 4:00 PM EST [facility] Anion Gap 13 5 - 15 01/28/2025 4:00 PM EST [facility] Glucose 80 65 - 99 mg/dL 01/28/2025 4:00 PM EST [facility] LAB[facility] Creatinine 0.63 0.50 - 1.20 mg/dL 01/28/2025 4:00 PM EST [facility]ICAL [facility]OLOGY LABORATORY Calcium 9.6 8.6 - 10.5 mg/dL 01/28/2025 4:00 PM EST [facility] CLINICAL PATHOLOGY LABORATORY Total Protein 8.1(H) 6.0 - 8.0 g/dL 01/28/2025 4:00 PM EST [facility] CLINICAL PATHOLOGY LABORATORY Albumin 4.4 3.5 - 5.2 g/dL 01/28/2025 4:00 PM EST [facility] CLINICAL PATHOLOGY LABORATORY Bilirubin, Total 0.3 0.2 - 1.2 mg/dL 01/28/2025 4:00 PM EST [facility] Alkaline Phosphatase 60 35 - 129 U/L 01/28/2025 4:00 PM EST [facility] CLINICAL PATHOLOGY LABORATORY AST 25 10 - 40 U/L 01/28/2025 4:00 PM EST [facility] ALT 26 10 - 40 U/L 01/28/2025 4:00 PM EST [facility] LAB[facility] BUN 9 7 - 23 mg/dL 01/28/2025 4:00 PM EST [facility] LAB[facility] eGFR >90 >=60 mL/min/1. 73m2 01/28/2025 4:00 PM EST [facility] LABOR[facility] Comment:The estimated glomer ular filtration rate (eGFR) is calculated using a new formula developed by the NKF-ASN task force to eliminate race-based correction factors. The new formula uses serum/plasma creatinine, age, and gender to determine eGFR. A value below 60mls/min might indicate kidney disease and will be flagged. For additional information, see Salazar et al, Am J Kidney Dis. 2021;79(2):268- 288, A Unifying Approach for GFR estimation: Recommendations of the NKF-ASN Task Force on Reassessing the Inclusion of Race in Diagnosing Kidney Disease . Globulin, Total 3.7 2.1 - 4.2 g/dL 01/28/2025 4:00 PM EST [facility] LABORATORY A/G Ratio 1.2(L) 1.5 - 3.0 01/28/2025 4:00 PM EST [facility] CLINICAL PATHOLOGY LABORATORY Blood Structure of peripheral vein / Unknown Venipuncture / Unknown 01/28/2025 2:40 PM EST 01/28/2025 3:15 PM EST us Rand Robert MD LAB BLOOD ORDERABLES Final Resul t [facility] [address] [place] [address], [place] * Hepatitis C Antibody w/Reflex to PCR (04/22/2023 8:46 AM EDT) Hepatitis C Antibody NON-REACT MIGUEL NON-REACT MIGUEL 04/22/2023 6:42 PM EDT [facility] Comment: HCV antibody was non-reactive. There is no laboratory evidence of HCV infection. In most cases, no further action is required. However, if recent HCV exposure is suspected, a test for HCV RNA (test code 02722) is suggested. For additional information please refer to http://education.Fannabee/faq/ORQ54m2 (This link is being provided for informational/ educational purposes only.) Blood Structure of peripheral vein / Unknown Venipuncture / Unknown 04/22/2023 8:46 AM EDT 04/22/2023 9:07 AM EDT Narrative [facility] 04/22/2023 6:42 PM EDT [facility] Received Date: Adeel Barr MD LAB BLOOD ORDERABLES Final Re sult [facility] [address] [facility] 3rd Floor, [place] [address], [place] [phone] [facility] [address] [facility] [address] [facility], [place] [address], [place] [phone] * Pap (04/18/2020 1:41 PM EST) Specimen Adequacy Satisfactory for evaluation [facility] 1 12:09 PM EST [facility]AT[facility] PATH[facility] LABORATORY Pathologist Cytology Interpretation Negative for intraepithelial lesion or malignancy. [facility] 1 12:09 PM EST [facility]ORY at 1209 EST Comment:This is the result o f a morphological screening test with an inherent possibility of a false negative interpretation. Other Findings Vaginal orlando composed of coccobacilli [facility] 1 12:09 PM EST [facility] LABORATORY Manager Integrity Statement This Pap test was examined by the [facility] System, [employer], [place], [place]. This Pap test was examined in accordance with the [facility] Cytopathology Laboratory written policy, which incorporates all CLIA mandates. Screening guidelines can be found in Am J Clin Pathol 2012;137:516-542. We endorse the practice guidelines developed by ASCCP and published in the Journal Lower Genital Tract Disease 17(5):S1-S27 (2013). [facility] MANUAL 1 12:09 PM EST [facility] ANATOMIC PATHOLOGY LABORATORY Clinical History none [facility] MANUAL 1 12:09 PM EST [facility] ANATOMIC PATHOLOGY LABORATORY Resulting Agency Case was signed out at [facility], Department of Pathology, [employer] 3 CLIA [id number] [facility] MANUAL 1 12:09 PM EST [facility] ANATOMIC PATHOLOGY LABORATORY Report Header Gynecologic Cytology Report Case: [id number] Authorizing Provider: Wolf Dye NP Collected: 04/18/2020 1341 Ordering Location: [facility] Received: 04/18/2020 [facility] Obstetrics and Gynecology First Screen: Bonnie Hathaway Rescreen: Obed Rhodes Specimen: Screening ThinPrep Pap, Cervix/Endocervix 1 12:09 PM EST [facility] ANATOMIC PATHOLOGY LABORATORY Brushing Cervix uteri structure / Unknown Non-Blood Collection / Unknown 04/18/2020 1:41 PM EST 04/18/2020 3:02 PM EST us Wolf Dye NP LAB PATHOLOGY/CYTOLOGY ORDERABL ES Final Result [facility] ANATOMIC PATHOLOGY LABORATORY [address] [place] [address], * Pap w/Reflex HPV (07/21/2012 9:04 AM EDT) Path Procedure [facility] ([id number]) 1 Edited by: [id number] [facility]ATOMIC PATHOLOGY - [facility] Specimen Labeled As: 1 CERVICAL/ENDOCERVI HAKAN CYTO MATERIAL - Edited by: [id number] EATOD [facility]OMIC PATHOLOGY - [facility] Diagnosis ThinPrep Pap Test Adequacy: Satisfactory for evaluation Interpretation: Negative for Intraepithelial Lesion or Malignancy Remarks/Recommenda tions: This is the result of a morphological screening test with an inherent probability of a false negative interpretation. HPV testing in combination with a morphological Pap test reduces the probability of a serious cervical epithelial abnormality in patients over age 30 and is cost-effective. Screening guidelines can be found in Journal Lower Genital Tract Disease 17(5):S1-S27 (2013). This Pap test was examined in accordance with the [facility] Cytopathology Laboratory written policy, which incorporates all CLIA mandates. This Pap test was examined by the [facility] Imaging System, [employer], [place], [place]. Edited by: [id number] - 12 [id number] [facility] ANATOMIC PATHOLOGY - [facility] Gynecologic Clinical Data Specimen source:, THINPREP (CERVICAL AND ENDOCERVICAL) [facility] ANATOMIC PATHOLOGY - [facility] Gynecologic Clinical Data First date of LMP:, MORE THAN TWO WEEKS AGO [facility] ANATOMIC PATHOLOGY - [facility] Pathology Codes Client Order Code:, [email or web address] [facility]OLOG[facility] - [facility] Pathology Codes Bill Type:, 3RD REPUBLICAN BILLING [facility] ANATOM[facility] PATHOLOGY - [facility] Marker 1 NILM,NILM [facility] AN[facility]OM[facility] Marker 2 [facility] ANATOMIC PATHOLOGY - [facility] Cc Results To ANDREA DUNN [id number] [facility] ANATOMIC PATHOLOGY - [facility] Signature REPORT SIGNED: BONNIE HATHAWAY 07/28/12 [facility] ANATOMIC PATHOLOGY - [facility] Sign Out Audit BONNIE HATHAWAY [id number] FINAL [place] [id number] [facility] ANATOMIC PATHOLOGY - [facility] Cytology / Unknown 3 9:04 AM EDT 07/24/2012 9:04 AM EDT Steph Keen MD LAB HISTORICAL RESULTS Fin al Result [facility]ATOMIC PATHOLOGY - [facility] [address] [place] [address], from Last 3 Months or Most Recently Relevant to Health Maintenance Insurance [facility] MEDICAID Advance Directives Documents on File Type Date Recorded Patient General Cargo Clerk Expl anation Health Care Proxy 07/19/2020 7:51 AM 07/14/19 21 HCP Health Care Proxy 06/09/2012 12:00 AM 06/04 HCP Checklist * Full Code (Latest Code Status on File) Date Activated Date Inactivated Comments 05/12/2020 4:28 PM 05/13/2020 3:36 PM * Full Code Date Activated Date Inactivated Comments 09/12/2018 1:53 PM 09/13/2018 8:26 PM Care Teams Valver Relationship Specialty Start Date End Date Rand Robert MD [address] [place] [address] PCP - General Internal Medicine 11/17/16
--- OUTSIDE RECORDS SUMMARY | 2025-01-30 16:51 | XMS_ITS | Encounter Summary ---
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 Not on file Not on file documented as of this encounter Plan of Treatment Upcoming Encounters Date Type Department Care Team (Late st Contact Info) Description 02/25/2025 2:45 PM EST Office Visit [facility] [address] [place], [place] [phone] Rand Robert MD [address] [place] [address] 03/31/2025 9:45 AM EST Office Visit [facility] Primary Care Clinic [address] [place] [address] Rand Robert MD [address] [place] [address] documented as of this encounter Visit Diagnoses [...] documented as of this encounter Care Teams Olive Brine Tester Relationship Specialty Start Date End Date Rand Robert MD [address] [place] [address] PCP - General Internal Medicine 11/17/16 documented as of this encounter
--- OUTSIDE RECORDS SUMMARY | 2025-01-30 16:51 | XMS_ITS | Encounter Summary ---
Author Organization [facility] Address [address] [place] [address] Care Team Providers Care Leather Splitter Name Role Phone Rand Robert MD Primary Care Provider Reason for Visit * Reason Onset Date Comments PAC Clinical Assessment 01/27/2025 PT returning call to clinic 01/27/2025 Encounter Details Date Type Department Care Team (Late st Contact Info) Description 01/27/2025 Telephone [facility] [address] [place] [phone] Telephone Intake, Staff PAC Clinical Assessment; PT returning call to clinic Social History Tobacco Use Types Packs/Day Years Used Date Smoking Tobacco: Former Cigarettes 4 2 018 - 02/04/2021 Smokeless Tobacco: Never Comments:currently vaping Alcohol Use Standard Drinks/Week Comments Yes 0 (1 standard drink = 0.6 oz pur e alcohol) Occasionally 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 Does not have a car at the moment Her father is bringing her, pt asking if she can be seen earlier than 12:45. No sooner appointments available Patient states needs to be seen so she will be here for her appointment. * Telephone Encounter - Olena Lopez - 01/28/2025 8:19 AM EST Pt calling stating she has a ED follow up appt today at 12:45 and would like to know if she can come in earlier than 12:45 due to transportation. * Telephone Encounter - Becky Owens - 01/27/2025 3:31 PM EST RANDELL Faxed request for medical records and marked STAT [facility] [phone] FAX [phone] Thank you. Becky * Telephone Encounter - Rand Robert MD - 01/27/2025 2:48 PM EST Please arrange Er note HIEU * Telephone Encounter - Jennifer Valdez RN - 01/27/2025 10:29 AM EST Ed follow up scheduled for tomorrow with dr. Robert Pt still feeling fatiqued * Telephone Encounter - Teresa Nuñez - 01/27/2025 10:25 AM EST Patient returning call to clinic, I have called over on 01/27/25 @ 10:25 am and was able to connect. Patient can be reached at. PH: [phone] * Telephone Encounter - Jennifre Valdez RN - 01/27/2025 10:03 AM EST lmom * Telephone Encounter - Michelle Roldan - 01/27/2025 9:17 AM EST Copied from [facility] #[id number]. Topic: Clinical - Messages for Clinical Team >> Jan 27, 2025 9:15 AM Michelle Guerra wrote: -What hospital was the PT seen at? [facility] -What is the date of Service? 01/26 -Why was the patient seen? Dizziness, feeling like she is going to pass out- low BP -When does the patient need to follow up? hieu - Appointment Information: te sent per DT due to ongoing symptoms. documented in this encounter Plan of Treatment Upcoming Encounters Date Type Department Care Team (Late st Contact Info) Description 02/25/2025 2:45 PM EST Office Visit [facility] Primary [facility] [address] [place] [phone] Rand Robert MD [address] [place] [address] 03/31/2025 9:45 AM EST Office Visit [facility] [address] [place] [address] Rand Robert MD [address] [place] [address] documented as of this encounter Visit Diagnoses Not on filedocumented in this encounter Care Teams Leather Splitter Relationship Specialty Start Date End Date Rand Robert MD [address] [place] [id number] PCP - General Internal Medicine 11/17/16 documented as of this encounter
--- OUTSIDE RECORDS SUMMARY | 2025-01-30 16:51 | XMS_ITS | Encounter Summary ---
Author Organization [facility] Address [address] [place] [address] Care Team Providers Care Inside Sales Advertising Executive Name Role Phone Rand Robert MD Primary Care Provider [phone] Encounter Details Date Type Department Care Team (Late st Contact Info) Description 01/30/2025 Telephone [facility] [address], [place] [phone] Rand Robert MD [address] [place], [place] [phone] Social History Tobacco Use Types Packs/Day Years Used Date Smoking Tobacco: Former Cigarettes 4 2 018 - 02/04/2021 Smokeless Tobacco: Never Comments:currently vaping Alcohol Use Standard Drinks/Week Comments Yes 0 (1 standard drink = 0.6 oz pur e alcohol) Occasionally [facility] Utilities Answer Date Recorded In the past 12 months has [employer] gas, oil, or water [employer] threatened to shut off services in your [...] 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 intake Diarrhea for a week 3 loose bowel movements a day Extensive workup was initiated Potassium was low at 3.1 She declined any diuretic/laxative use She was prescribed potassium She has taken 60 mEq over the last 24 hours Now her potassium is 2.9 She has not had any loose stools over the last 24 hours Unclear etiology of this critically low potassium. Which is going down despite taking oral potassium Referred to ER for EKG and intravenous potassium Patient to contact me on Saturday and I will most likely need to order maintenance potassium based onhow much potassium she ended up requiring in the ED and to order urine studies to workup her hypokalemia and likely urgent nephrology referral documented in this encounter Plan of Treatment Upcoming Encounters Date Type Department Care Team (Late st Contact Info) Description 02/25/2025 2:45 PM EST Office Visit [facility] [address], [place] [phone] Rand Robert MD [address], [place] [phone] 03/31/2025 9:45 AM EST Office Visit [facility] [address] [place] [phone] Rand Robert MD [address] [place] [phone] documented as of this encounter Visit Diagnoses Not on filedocumented in this encounter Care Teams Inside Sales Advertising Executive Relationship Specialty Start Date End Date Rand Robert MD [address] [place] [id number] PCP - General Internal Medicine 11/17/16 documented as of this encounter
== END 2025-01-30 16:54 | disposition left against medical advice (07) ==
PROVIDERS: Emergency Provider Emergency Medicine; PCP Radiology Nuclear Radiology
DX: R42 Dizziness and giddiness (principal); Z53.29 Procedure and treatment not carried out because of patient's decision for other reasons
CPT/HCPCS: 99281